=== PATIENT | male | born 1955 | race Caucasian/White ===

== ENCOUNTER 2016-05-01 15:42 | Emergency (ER) | payer BC ==
[2006-04-17 22:07] VITALS: BP 132/86
[~2016-05-01] VITALS: Ht 180.3 cm; Wt 90.9 kg
[~2016-05-01 15:42] MED LIST: ACTOS15 MG PO; ALLOPURINOL100 MG PO; AMOXICILLIN 8751 TAB PO; ASPI81EC86; ASPIRIN 32325 MG/TAB PO; ASPIRIN 81M81 MG/TA2 PO; BRILINTA90 MG PO; CHANTIX START M1 TAB PO; FLAGYL 250250 MG/TAB PO; GLUCOPHAGE500 MG/TAB PO; HCTZ 25MG TAB25 MG PO; LEVAQUIN 5500 MG/TA1 PO; LIPITOR20 MG PO; LOPRESSOR 225 MG/TAB PO; LOPRESSOR 550 MG/TAB PO; LORTAB 5/500 501 TAB PO; NORCO 325 MG-51 TAB PO; ONGLYZA2.5 MG PO; PLAVIX 75MG TAB75 MG PO; PRINIVIL20 MG PO; TESTOSTERONE; TOPROL; TOPROL XL 25MG25 MG PO; TOPROL XL 50MG50 MG PO; TYLENOL 325MG325 MG PO; UNABLE; ZESTRIL 10MG10 MG PO; ZESTRIL 20MG TA20 MG PO; ZOCOR; ZOCOR 10MG10 MG PO; ZOCOR 20MG20 MG PO; ZOCOR 40MG40 MG PO
[2016-05-01 15:43] VITALS: TEMP 97.8
[2016-05-01] MEDS ORDERED: TOPAMAX 25MG25 M1 PO (15:49)
[2016-05-01] MEDS ORDERED: LIPITOR 40MG TA40 MG PO (15:49)
[2016-05-01] MEDS ORDERED: FLEXERIL 1010 MG/TAB PO (16:54)
[2016-05-01] MEDS ORDERED: PREDNISONE20 MG PO (16:54)
[2016-05-01] MEDS ORDERED: PERCOCET 325 MG1 TA2 PO (16:54)
[2016-05-01 17:25] VITALS: BP 112/68; PULSE 57
== END 2016-05-01 17:27 | disposition home or self-care (01) ==
LOC: COL.ER 15:42
DX: M54.5 Low back pain (principal); M54.16 Radiculopathy, lumbar region
CPT/HCPCS: J1170; J1885; J2360; J3010; J7512

== ENCOUNTER 2017-03-14 17:42 | Emergency (ER) | payer BC ==
[2006-04-17 22:07] VITALS: BP 132/86
[~2017-03-14] VITALS: Ht 180.3 cm; Wt 90.9 kg
[~2017-03-14 17:42] MED LIST changes: +FLEXERIL 1010 MG/TAB PO; +LIPITOR 40MG TA40 MG PO; +PERCOCET 325 MG1 TA2 PO; +PREDNISONE20 MG PO; +TOPAMAX 25MG25 M1 PO
[2017-03-14 17:45] VITALS: TEMP 97.9
[2017-03-14 18:03] LABS: BASO # 0.1 (0.0-0.2); BASO % 0.9 % (0.0-2.0); EOS # 0.1 (0.0-0.7); EOS % 1.3 % (0-4.0); GRAN # 3.4 (1.4-6.5); GRAN % 52.7 % (42.2-75.2); HEMATOCRIT 49.1 % (42.0-52.0); LYMPH # 1.9 (1.2-3.4); LYMPH % 30.2 % (20.0-51.0); MEAN CELL VOLUME 96 fl (80.0-100.0); MEAN CORPUSCULAR HEMOGLOBIN 33 pg (27.0-31.0); MEAN CORPUSCULAR HGB CONC 35 g/dl (33.0-37.0); MEAN PLATELET VOLUME 9.6 fl (7.4-10.4); MONO # 0.9 (0.1-0.6); MONO % 14.7 % (1.7-9.3); PLATELET COUNT 130 K/mm3 (130-400); RED BLOOD COUNT 5.12 M/mm3 (4.20-5.60); WHITE BLOOD COUNT 6.4 K/mm3 (4.8-10.8)
[2017-03-14 18:12] LABS: PROTHROMBIN TIME 10.5 SECONDS (9.7-12.8)
[2017-03-14 18:15] LABS: PARTIAL THROMBOPLASTIN TIME 32.6 SECONDS (26.0-37.0)
[2017-03-14 18:27] LABS: ADJUSTED CALCIUM 8.3 mg/dL (8.4-10.2); ALANINE AMINOTRANSFERASE 46 U/L (21-72); ALBUMIN 4.7 gm/dL (3.5-5.0); ALCOHOL(ethanol),MEDICAL 279 mg/dL; ALKALINE PHOSPHATASE 114 U/L (50-136); ANION GAP 12 mmol/L (7-16); BILIRUBIN,TOTAL 0.5 mg/dL (0.0-1.0); BLOOD UREA NITROGEN 11 mg/dL (9-20); CALCIUM 8.9 mg/dL (8.4-10.2); CARBON DIOXIDE 27 mmol/L (22-30); CHLORIDE 102 mmol/L (98-107); CREATININE, serum 0.71 mg/dL (0.66-1.25); GLUCOSE 135 mg/dL (74-106); LIPASE 133 U/L (23-300); SODIUM 140 mmol/L (137-145); TOTAL PROTEIN 7.6 gm/dL (6.4-8.2)
[2017-03-14 18:48] LABS: TROPONIN-I < 0.012 ng/mL (0.000-0.034)
[2017-03-14 23:45] VITALS: BP 158/99; PULSE 84
== END 2017-03-15 00:10 | disposition short-term general hospital (02) ==
LOC: COL.ER 17:42
PROVIDERS: Emergency Medicine
DX: J18.9 Pneumonia, unspecified organism (principal); I10 Essential (primary) hypertension; I25.10 Atherosclerotic heart disease of native coronary artery without angina pectoris; E78.5 Hyperlipidemia, unspecified; F17.210 Nicotine dependence, cigarettes, uncomplicated; Z95.5 Presence of coronary angioplasty implant and graft
CPT/HCPCS: J1956; J2060; J2270; J7030; Q9967

== ENCOUNTER 2017-09-06 21:47 | Emergency (ER) | payer BC ==
[2006-04-17 22:07] VITALS: BP 132/86
[~2017-09-06] VITALS: Ht 180.3 cm; Wt 90.9 kg
[2017-09-06 21:57] VITALS: BP 140/84; TEMP 97.4
[2017-09-06] MEDS ORDERED: DESYREL 50MG50 MG PO (22:34)
[2017-09-06] MEDS ORDERED: LIDODERM 5% PATC1 EA TP (23:12)
[2017-09-06] MEDS ORDERED: FLEXERIL 1010 MG/TAB PO (23:25)
[2017-09-06 23:39] VITALS: PULSE 78
== END 2017-09-06 23:40 | disposition home or self-care (01) ==
LOC: COL.ER 21:47
DX: M54.31 Sciatica, right side (principal); I25.2 Old myocardial infarction; F17.210 Nicotine dependence, cigarettes, uncomplicated; Z79.82 Long term (current) use of aspirin

== ENCOUNTER 2018-05-30 08:13 | Emergency (ER) | payer BC ==
[~2018-05-30] VITALS: Ht 180.3 cm; Wt 63.6 kg
[~2018-05-30 08:13] MED LIST changes: +DESYREL 50MG50 MG PO; +LIDODERM 5% PATC1 EA TP
[2018-05-30 08:15] VITALS: TEMP 97
[2018-05-30] MEDS ORDERED: NORVASC 5MG5 MG/TAB PO (08:26)
[2018-05-30] MEDS ORDERED: PLAVIX 75MG TAB75 MG PO (08:27)
[2018-05-30] MEDS ORDERED: TOPAMAX 25MG25 M1 PO (08:28)
[2018-05-30 08:47] LABS: BASO # 0.1 (0.0-0.2); BASO % 0.8 % (0.0-2.0); EOS % 0.1 % (0-4.0); GRAN # 8.1 (1.4-6.5); GRAN % 84.6 % (42.2-75.2); HEMATOCRIT 50.6 % (42.0-52.0); HEMOGLOBIN 17.7 g/dl (13.5-18.0); LYMPH # 0.6 (1.2-3.4); LYMPH % 5.8 % (20.0-51.0); MEAN CELL VOLUME 94 fl (80.0-100.0); MEAN CORPUSCULAR HEMOGLOBIN 33 pg (27.0-31.0); MEAN CORPUSCULAR HGB CONC 35 g/dl (33.0-37.0); MEAN PLATELET VOLUME 9.4 fl (7.4-10.4); MONO # 0.8 (0.1-0.6); MONO % 8.3 % (1.7-9.3); PLATELET COUNT 100 K/mm3 (130-400); RED BLOOD COUNT 5.36 M/mm3 (4.20-5.60); REDCELL DISTRIBUTION WIDTH-CV 12.2 % (11.5-14.5)
[2018-05-30 08:53] LABS: INR 1.1 (0.8-3.0)
[2018-05-30 09:03] LABS: ALBUMIN 4.4 gm/dL (3.5-5.0); BILIRUBIN,TOTAL 1.4 mg/dL (0.0-1.0); CALCIUM 9.4 mg/dL (8.4-10.2); CREATININE, serum 0.64 mg/dL (0.66-1.25); POTASSIUM 4.5 mmol/L (3.4-5.0); TOTAL PROTEIN 7.7 gm/dL (6.4-8.2)
[2018-05-30 09:59] VITALS: BP 145/87; PULSE 75
== END 2018-05-30 10:00 | disposition short-term general hospital (02) ==
LOC: COL.ER 08:13
PROVIDERS: Emergency Medicine
DX: S06.5X9A Traumatic subdural hemorrhage with loss of consciousness of unspecified duration, initial encounter (principal); R47.01 Aphasia; I10 Essential (primary) hypertension; I25.10 Atherosclerotic heart disease of native coronary artery without angina pectoris; F17.210 Nicotine dependence, cigarettes, uncomplicated; G45.9 Transient cerebral ischemic attack, unspecified; F10.129 Alcohol abuse with intoxication, unspecified; Z91.14 Patient's other noncompliance with medication regimen; Z79.82 Long term (current) use of aspirin; Z79.02 Long term (current) use of antithrombotics/antiplatelets; W19.XXXA Unspecified fall, initial encounter
CPT/HCPCS: J7030

== ENCOUNTER 2019-06-04 18:32 | Emergency (ER) | payer SELFPAY ==
[2006-04-17 22:07] VITALS: BP 132/86
[~2019-06-04] VITALS: Ht 180.3 cm; Wt 77.3 kg
[~2019-06-04 18:32] MED LIST changes: +NORVASC 5MG5 MG/TAB PO
[2019-06-04 18:50] VITALS: BP 157/72; PULSE 93; TEMP 97.6
== END 2019-06-04 20:57 | disposition left against medical advice (07) ==
LOC: COL.ER 18:32
DX: R10.84 Generalized abdominal pain (principal)

== ENCOUNTER 2019-10-26 09:39 | Emergency (ER) | payer SELFPAY ==
[2006-04-17 22:07] VITALS: BP 132/86
[~2019-10-26] VITALS: Ht 180.3 cm; Wt 77.3 kg
[2019-10-26 09:44] VITALS: TEMP 98
[2019-10-26 10:32] LABS: BASO # 0.1 (0.0-0.2); EOS # 0.1 (0.0-0.7); EOS % 1.3 % (0-4.0); GRAN # 3.6 (1.4-6.5); GRAN % 75.8 % (42.2-75.2); HEMATOCRIT 38.2 % (42.0-52.0); HEMOGLOBIN 12.5 g/dl (13.5-18.0); LYMPH # 0.4 (1.2-3.4); LYMPH % 7.5 % (20.0-51.0); MEAN CELL VOLUME 102 fl (80.0-100.0); MEAN CORPUSCULAR HEMOGLOBIN 33 pg (27.0-31.0); MEAN CORPUSCULAR HGB CONC 33 g/dl (33.0-37.0); MEAN PLATELET VOLUME 10.3 fl (7.4-10.4); MONO # 0.7 (0.1-0.6); PLATELET COUNT 54 K/mm3 (130-400); RED BLOOD COUNT 3.74 M/mm3 (4.20-5.60); REDCELL DISTRIBUTION WIDTH-CV 13.8 % (11.5-14.5)
[2019-10-26 10:34] LABS: COLLECTION METHOD CLEAN CATCH
[2019-10-26 10:38] LABS: INR 1.2 (0.8-3.0); PROTHROMBIN TIME 13.8 SECONDS (9.7-12.8)
[2019-10-26 10:41] LABS: PARTIAL THROMBOPLASTIN TIME 42.6 SECONDS (26.0-37.0)
[2019-10-26 10:41] LABS: PH 6 (5-8); SQUAMOUS EPITHELIAL None Seen /hpf; URINE APPEARANCE Clear; URINE BACTERIA None Seen /hpf; URINE BILIRUBIN Negative (NEGATIVE); URINE BLOOD Negative (NEGATIVE); URINE COLOR Yellow; URINE GLUCOSE Negative (NEGATIVE); URINE KETONE Trace (NEGATIVE); URINE LEUKOCYTE ESTERASE Negative (NEGATIVE); URINE NITRATE Negative (NEGATIVE); URINE PROTEIN(semi-quant) Negative (NEGATIVE); URINE RBC 0-2 /hpf; URINE UROBILINOGEN Negative (NEGATIVE)
[2019-10-26 10:43] LABS: ALBUMIN 3.4 gm/dL (3.5-5.0); BILIRUBIN,TOTAL 2.5 mg/dL (0.0-1.0); C-REACTIVE PROTEIN 3.3 mg/dL (0.0-0.9); CALCIUM 8.1 mg/dL (8.4-10.2); CREATININE, serum 0.5 (0.66-1.25); POTASSIUM 3.6 mmol/L (3.4-5.0); TOTAL PROTEIN 7.2 gm/dL (6.4-8.2)
[2019-10-26] MEDS ORDERED: K-DUR20 MEQ PO (13:06)
[2019-10-26] MEDS ORDERED: LASIX 20MG TABL20 MG PO (13:06)
[2019-10-26] MEDS ORDERED: DOXYCYCLINE 10100 MG PO (13:06)
[2019-10-26] MEDS ORDERED: TOPROL XL 50MG50 MG PO (13:06)
[2019-10-26 13:23] VITALS: BP 166/96; PULSE 97
== END 2019-10-26 13:30 | disposition home or self-care (01) ==
LOC: COL.ER 09:39
PROVIDERS: Physician Assistant
DX: L03.115 Cellulitis of right lower limb (principal); L03.116 Cellulitis of left lower limb; R60.0 Localized edema; I10 Essential (primary) hypertension; I25.10 Atherosclerotic heart disease of native coronary artery without angina pectoris; F17.210 Nicotine dependence, cigarettes, uncomplicated; Z79.82 Long term (current) use of aspirin; Z79.02 Long term (current) use of antithrombotics/antiplatelets; Z95.5 Presence of coronary angioplasty implant and graft

== ENCOUNTER 2019-12-16 22:49 | Emergency (ER) | payer SELFPAY ==
[2006-04-17 22:07] VITALS: BP 132/86
[~2019-12-16] VITALS: Ht 180.3 cm; Wt 79.5 kg
[~2019-12-16 22:49] MED LIST changes: +DOXYCYCLINE 10100 MG PO; +K-DUR20 MEQ PO; +LASIX 20MG TABL20 MG PO
[2019-12-16 22:58] VITALS: TEMP 98.1
[2019-12-16 23:45] LABS: BASO # 0.1 (0.0-0.2); BASO % 1.4 % (0.0-2.0); EOS # 0.1 (0.0-0.7); EOS % 1.9 % (0-4.0); GRAN # 2.7 (1.4-6.5); HEMOGLOBIN 10.8 g/dl (13.5-18.0); LYMPH # 0.7 (1.2-3.4); LYMPH % 15.6 % (20.0-51.0); MEAN CELL VOLUME 103 fl (80.0-100.0); MEAN CORPUSCULAR HEMOGLOBIN 35 pg (27.0-31.0); MEAN CORPUSCULAR HGB CONC 34 g/dl (33.0-37.0); MONO # 0.7 (0.1-0.6); MONO % 15.9 % (1.7-9.3); PLATELET COUNT 57 K/mm3 (130-400); REDCELL DISTRIBUTION WIDTH-CV 15.6 % (11.5-14.5)
[2019-12-16 23:47] LABS: HEMATOCRIT 31.8 % (42.0-52.0)
[2019-12-16 23:56] LABS: ALANINE AMINOTRANSFERASE 23 U/L (4-49); ALBUMIN 3.4 gm/dL (3.5-5.0); ALCOHOL(ethanol),MEDICAL 189 mg/dL; ALKALINE PHOSPHATASE 224 U/L (50-136); ANION GAP 11 mmol/L (7-16); AST,SGOT 89 U/L (15-37); BILIRUBIN,TOTAL 1.6 mg/dL (0.0-1.0); CALCIUM 8.3 mg/dL (8.4-10.2); CARBON DIOXIDE 20 mmol/L (22-30); CHLORIDE 103 mmol/L (98-107); CREATININE, serum 0.42 (0.66-1.25); GLUCOSE 93 mg/dL (74-106); POTASSIUM 3.6 mmol/L (3.4-5.0); SODIUM 134 mmol/L (137-145); TOTAL PROTEIN 7.1 gm/dL (6.4-8.2)
[2019-12-16 23:57] LABS: BLOOD UREA NITROGEN < 2 mg/dL (9-20)
[2019-12-17] MEDS ORDERED: AMOXICILLIN 8751 TAB PO (00:03)
[2019-12-17 00:59] VITALS: BP 129/76; PULSE 85
== END 2019-12-17 00:59 | disposition home or self-care (01) ==
LOC: COL.ER 22:49
PROVIDERS: Emergency Medicine
DX: S00.93XA Contusion of unspecified part of head, initial encounter (principal); F10.229 Alcohol dependence with intoxication, unspecified; R40.2412 Glasgow coma scale score 13-15, at arrival to emergency department; Z79.82 Long term (current) use of aspirin; Z79.02 Long term (current) use of antithrombotics/antiplatelets; W01.0XXA Fall on same level from slipping, tripping and stumbling without subsequent striking against object, initial encounter; Y92.009 Unspecified place in unspecified non-institutional (private) residence as the place of occurrence of the external cause
CPT/HCPCS: J2270; J2405; J7030

== ENCOUNTER 2020-11-14 16:29 | Inpatient (IN) | payer OTHER ==
[~2020-11-14] VITALS: Ht 172.7 cm; Wt 69.8 kg
[2020-11-14 17:07] LABS: BASO # 0.1 (0.0-0.2); BASO % 2.2 % (0.0-2.0); EOS % 0.8 % (0-4.0); GRAN # 2.7 (1.4-6.5); GRAN % 74.5 % (42.2-75.2); HEMATOCRIT 37.9 % (42.0-52.0); HEMOGLOBIN 12.8 g/dl (13.5-18.0); LYMPH # 0.4 (1.2-3.4); LYMPH % 11.1 % (20.0-51.0); MEAN CELL VOLUME 95 fl (80.0-100.0); MEAN CORPUSCULAR HEMOGLOBIN 32 pg (27.0-31.0); MEAN CORPUSCULAR HGB CONC 34 g/dl (33.0-37.0); MEAN PLATELET VOLUME 10.5 fl (7.4-10.4); MONO # 0.4 (0.1-0.6); MONO % 11.1 % (1.7-9.3); RED BLOOD COUNT 3.99 M/mm3 (4.20-5.60); REDCELL DISTRIBUTION WIDTH-CV 14.5 % (11.5-14.5)
[2020-11-14 17:11] LABS: PLATELET COUNT 45 K/mm3 (130-400)
[2020-11-14 17:14] LABS: INR 1.5 (0.8-3.0); PROTHROMBIN TIME 17.1 SECONDS (9.7-12.8)
[2020-11-14 17:19] LABS: ALBUMIN 3.8 gm/dL (3.5-5.0); BILIRUBIN,TOTAL 3.9 mg/dL (0.0-1.0); CALCIUM 8.4 mg/dL (8.4-10.2); CREATININE, serum 0.51 (0.66-1.25); MAGNESIUM 1.8 mg/dL (1.6-2.3); POTASSIUM 4.1 mmol/L (3.4-5.0)
[2020-11-14 17:30] LABS: TROPONIN-I 0.085 ng/mL (0.000-0.035)
[2020-11-14 17:39] LABS: COLLECTION METHOD RANDOM VOIDED
[2020-11-14 17:57] LABS: MUCOUS Present /lpf; PH 6 (5-8); SQUAMOUS EPITHELIAL 0-2 /hpf; URINE APPEARANCE Clear; URINE BACTERIA None Seen /hpf; URINE BILIRUBIN Negative (NEGATIVE); URINE BLOOD Negative (NEGATIVE); URINE COLOR Yellow; URINE GLUCOSE Negative (NEGATIVE); URINE KETONE Negative (NEGATIVE); URINE LEUKOCYTE ESTERASE Negative (NEGATIVE); URINE NITRATE Negative (NEGATIVE); URINE PROTEIN(semi-quant) Negative (NEGATIVE); URINE RBC None Seen /hpf
[2020-11-14 18:41] LABS: TRICYCLIC ANTIDEPRESS URINE NEGATIVE
[2020-11-14 23:36] VITALS: BP 122/61; PULSE 75; TEMP 97.8
[2020-11-15] VITALS (9 sets, daily range): BP systolic 123–145; BP diastolic 54–73; PULSE 77–84; TEMP 98.1–99.5
--- NOTE | 2020-11-15 00:48 | NUR ---
Patient arrived to medical floor room 312 via hospital bed from ER around 2100. Patient A/O x3. Patient reports some lower back pain 5/10. Patient reports feeling anxious. PRN pain med given per JUN. Patient has received Ativan prior to come to medical floor and it is too soon to give Ativan at this time. Patient currently scoring 4 or 5 on alcohol detox scale. Oriented patient to the room. Bed alarms on. Fall precaution and seizure precaution maintained. Call light within reach. Will continue to monitor.
--- NOTE | 2020-11-15 06:12 | NUR ---
Patient sletp well throughout the night. Patient currently scoring 2-3 on CIWA scale this morning. Troponin was 2.71 last night. Patient denies any chest pain throughout the night. Hospitalist JOSR Palmer made aware. Per Estela OVALLES, we will monitor for now. Call light within reach.
[2020-11-15 07:49] LABS: CALCIUM 7.9 mg/dL (8.4-10.2); CREATININE, serum 0.42 (0.66-1.25); POTASSIUM 3.4 mmol/L (3.4-5.0)
[2020-11-15 07:56] LABS: BASO % 1.7 % (0.0-2.0); EOS # 0.1 (0.0-0.7); GRAN # 1.3 (1.4-6.5); GRAN % 56.1 % (42.2-75.2); LYMPH # 0.5 (1.2-3.4); LYMPH % 22.6 % (20.0-51.0); MEAN CELL VOLUME 97 fl (80.0-100.0); MEAN CORPUSCULAR HGB CONC 33 g/dl (33.0-37.0); MEAN PLATELET VOLUME 10.8 fl (7.4-10.4); MONO # 0.4 (0.1-0.6); MONO % 16.2 % (1.7-9.3); RED BLOOD COUNT 3.23 M/mm3 (4.20-5.60); REDCELL DISTRIBUTION WIDTH-CV 14.6 % (11.5-14.5)
[2020-11-15 07:58] LABS: HEMATOCRIT 31.4 % (42.0-52.0); HEMOGLOBIN 10.3 g/dl (13.5-18.0); MEAN CORPUSCULAR HEMOGLOBIN 32 pg (27.0-31.0)
[2020-11-15 08:00] LABS: PLATELET COUNT 38 K/mm3 (130-400)
[2020-11-15 08:29] LABS: TROPONIN-I 1.9 ng/mL (0.000-0.035)
--- NOTE | 2020-11-15 11:46 | NUR ---
Assessment completed, alert/oriented, vital signs stable, denies pain or discomfort, troponin elevated/ cardiology consulted, denies any chest discomfort, platelets low/ no hep gtt ordered, patient scoring 4-6 on CIWA, he denies other needs , will continue to monitor closely
--- NOTE | 2020-11-15 12:48 | NUR ---
Plan is to return home with spouse Pat. SW met with patient about DC plan. Patient reports that he wants help with his drinking and smoking problem. Patient reports that he had a few beers and then fell back and slide down the wall. Patient reports that his PCP is Dr. Salas. Patient reports that he obtians medications at [facility] without difficulty. Patient reports that he works with Dr. Vogt, Dr. Stallings for care. Patient sophia having any DME use and has a cane but does not use it. Patient reports that he is not sure what he needs to feel better. SW will follow up and offered SUB rehab options.
--- NOTE | 2020-11-15 22:40 | NUR ---
Patient assessed around 1929. Given PRN Ativan for detox at that time, and again around 2239 per protocol. Patient with tremors, diaphoretic, insomnia, no appetite, febrile at times. High fall risk precautions in place. Voices no questions, needs, or concern at this time. Resting in bed with call light within reach. Denies chest pain and discomfort. Telemetry showing normal sinus rhythm. Very unsteady with ambulating.
[2020-11-16] VITALS (9 sets, daily range): BP systolic 12–147; BP diastolic 57–81; PULSE 75–94; TEMP 97.6–98.8
--- NOTE | 2020-11-16 05:27 | NUR ---
Patient has received PRN Ativan per detox protocol throughout the night. Has been scoring 6-9 on detox scale. Has been having some increased confusion, but easily redirected. Has been gettig up and wanting to go outside. Order received for nicotine patch, and given. Patient has been incontinet a few times during the night. Cares provided. Patient resting in bed with call light within reach at this time. High fall risk precautions in place.
--- NOTE | 2020-11-16 07:19 | NUR ---
Assessment completed, patient having more detox/ widthdrawl symptoms, he is now disoriented and impulsive, anxious and has visible tremors, vital signs remain stable, heart RRR/distal pulses are palpable, lungs CTA/ no resp.difficulty, bed alarm is set and will continue to monitor closely
[2020-11-16 07:26] LABS: BASO # 0.1 (0.0-0.2); BASO % 1.8 % (0.0-2.0); EOS % 1.2 % (0-4.0); GRAN # 2.3 (1.4-6.5); GRAN % 68.4 % (42.2-75.2); HEMOGLOBIN 10.2 g/dl (13.5-18.0); LYMPH # 0.5 (1.2-3.4); LYMPH % 13.4 % (20.0-51.0); MEAN CELL VOLUME 94 fl (80.0-100.0); MEAN CORPUSCULAR HEMOGLOBIN 31 pg (27.0-31.0); MEAN CORPUSCULAR HGB CONC 33 g/dl (33.0-37.0); MEAN PLATELET VOLUME 11.2 fl (7.4-10.4); MONO # 0.5 (0.1-0.6); MONO % 14.9 % (1.7-9.3); RED BLOOD COUNT 3.25 M/mm3 (4.20-5.60)
[2020-11-16 07:29] LABS: HEMATOCRIT 30.5 % (42.0-52.0)
[2020-11-16 07:30] LABS: PLATELET COUNT 35 K/mm3 (130-400)
[2020-11-16 07:38] LABS: CALCIUM 8.3 mg/dL (8.4-10.2); CHOLESTEROL RISK RATIO 3.7; CREATININE, serum 0.4 (0.66-1.25); POTASSIUM 3.3 mmol/L (3.4-5.0); TOTAL PROTEIN 7.3 gm/dL (6.4-8.2)
--- NOTE | 2020-11-16 13:00 | NUR ---
Patient continues to be very restless, disoriented and impulsive, he has visible tremors and is a high fall risk, CIWA scores of 9-10 , giving Ativan per protocol, his vital signs are stable/ and is SR on tele, I have notified that the Ativan does not seem to be helping his symptoms much if any at all, she gave an order for an additional IV dose of Ativan and to transfer patient to ICU for Precedex gtt, I have notfied smoke control supervisor JERRI Jones and she spoke with to imfor her that we currently do not have any open ICU beds, we will continue to closely montior the patient on the Medical floor
--- NOTE | 2020-11-16 18:56 | NUR ---
Bedside report received from JERRI Maurer. Patient laying in bed appears very anxious. Visible tremors noted. at bedside. Bed-alarms on, Fall precaution and seizure precautions in place. Will continue to monitor.
--- NOTE | 2020-11-16 22:56 | NUR ---
Shift assessment completed. Patient appears very anxious and agitated. Patient drowsy and oriented to self only. Able to tell his name and date of . But disoriented to place, current date or month, or situation. Patient curretly scoring 9 on CIWA scale. PRN Ativan per JUN. All other scheduled meds given per JUN. Fall precaution and seizure precaution maintained. Call light within reach. Will continue to monitor.
[2020-11-17] VITALS (8 sets, daily range): BP systolic 98–134; BP diastolic 40–94; PULSE 67–94; TEMP 97.5–98.7
--- NOTE | 2020-11-17 06:18 | NUR ---
Patient received first dose of Valium 10mg last night at 2100. Patient slept well after Vallium intake. Patient awake this morning around 5am and getting very agitated and combative. Patient has been scoring 9-10 on CIWA scale and has been receiving PRN Ativan throughout the night. Call light within reach. Bed alarms on. Fall precaution and seizure precaution maintained throughout the night.
[2020-11-17 06:47] LABS: BASO % 0.6 % (0.0-2.0); EOS % 0.2 % (0-4.0); GRAN # 5.3 (1.4-6.5); GRAN % 79.6 % (42.2-75.2); HEMOGLOBIN 11.2 g/dl (13.5-18.0); LYMPH # 0.5 (1.2-3.4); LYMPH % 7.7 % (20.0-51.0); MEAN CELL VOLUME 94 fl (80.0-100.0); MEAN CORPUSCULAR HEMOGLOBIN 33 pg (27.0-31.0); MEAN CORPUSCULAR HGB CONC 35 g/dl (33.0-37.0); MEAN PLATELET VOLUME 11.9 fl (7.4-10.4); MONO # 0.8 (0.1-0.6); MONO % 11.6 % (1.7-9.3); RED BLOOD COUNT 3.43 M/mm3 (4.20-5.60); REDCELL DISTRIBUTION WIDTH-CV 14.3 % (11.5-14.5)
[2020-11-17 06:52] LABS: HEMATOCRIT 32.3 % (42.0-52.0)
[2020-11-17 06:54] LABS: PLATELET COUNT 38 K/mm3 (130-400)
--- NOTE | 2020-11-17 07:00 | NUR ---
Report with JERRI Viera. Pt resting in bed with eyes closed, resp even and unlabored. Call light in reach. Bed alarm on.
[2020-11-17 07:13] LABS: CALCIUM 8.4 mg/dL (8.4-10.2); CREATININE, serum 0.49 (0.66-1.25); MAGNESIUM 1.8 mg/dL (1.6-2.3); POTASSIUM 3.9 mmol/L (3.4-5.0)
--- NOTE | 2020-11-17 11:47 | NUR ---
Pt refusing to take sched medications by mouth and still drowsy, falls back to sleep quickly after conversation. BP slightly low. Provider notified of pt's refusal of medications and BP parameters discussed for medications.
--- NOTE | 2020-11-17 18:00 | NUR ---
Bed alarm sounding, pt trying to get out of bed to use bathroom. This nurse and assisting nurse help pt to stand with walker. Pt able to bear weight briefly, very shaky and not able to take steps, sits back down and agrees to try urinal. Pt has already been incontinent of urine in the brief, unable to void any more. Brief changed and amberly care provided. Sched medications administered. Call light in reach. Bed alarm on.
[2020-11-18] VITALS (8 sets, daily range): BP systolic 95–137; BP diastolic 42–56; PULSE 60–90; TEMP 97.6–99
--- NOTE | 2020-11-18 01:23 | NUR ---
Pt alert, slightly confused. Pt able to answer orientation questions, but mentioned daughter and friend being here today. Pt also noted to have incomprehensible speech during assessment. Pt's pulses in lower extremities were 1+ bilaterally. Pt had 1+ edema in bilateral lower extremities. Pt has generalized bruising on bilateral arms with a skin tear on right forearm covered with mepelex. Pt scored 4 on Alcohol withdraw monitoring and was given valium per orders. No prn medications given at this time. Pt had one bout of incontinence and was cleaned with personal wipes and a full linen change completed.
--- NOTE | 2020-11-18 06:20 | NUR ---
Pt alert with mild confusion. Able to answer orientation questions during shift assessment. Pt unable to answer all orientation questions during later neuro checks, pt easily re-oriented as they woke up. Pt's alcohol withdrawal scores ranged 2-4, no prn medications needed. Pt had one bout of incontinence, cleaned with personal wipes and full linen change provided. Pt free from injury this shift. Pt's VS remained stable during shift.
[2020-11-18 06:37] LABS: HEMOGLOBIN 10.7 g/dl (13.5-18.0); MEAN CELL VOLUME 97 fl (80.0-100.0); MEAN CORPUSCULAR HEMOGLOBIN 32 pg (27.0-31.0); MEAN CORPUSCULAR HGB CONC 33 g/dl (33.0-37.0); MEAN PLATELET VOLUME 11.5 fl (7.4-10.4); RED BLOOD COUNT 3.33 M/mm3 (4.20-5.60); REDCELL DISTRIBUTION WIDTH-CV 14.5 % (11.5-14.5)
[2020-11-18 06:53] LABS: CALCIUM 8.3 mg/dL (8.4-10.2); CREATININE, serum 0.46 (0.66-1.25); HEMATOCRIT 32.2 % (42.0-52.0); MAGNESIUM 1.9 mg/dL (1.6-2.3); PLATELET COUNT 47 K/mm3 (130-400); POTASSIUM 3.7 mmol/L (3.4-5.0)
--- NOTE | 2020-11-18 09:14 | NUR ---
PT RESTING IN BED, EATING BREAKFAST. PATIENT ALERT AND ORIENTED TO LOCATION AND DATE. MORNING MEDICATIONS GIVEN. CIWA ASSESSMENT SCORE OF 1. INSPIRATORY WHEEZING AND STRIOR UPON AUSCULTATION. R FOREARM HAS A WOUND AND DRESSING APPLIED. PT DENIES ANY PAIN. WILL CONTINUE TO MONITOR.
--- NOTE | 2020-11-18 10:57 | NUR ---
First visit from the invoice checker. Patient was asleep. Piano Tuner prayed for patient while standing outside their door.
--- NOTE | 2020-11-18 22:06 | NUR ---
Pt drowsy, able to arouse to name easily. Pt able to answer orientation questions correctly. Pt right side budget report clerk weaker than left. Pt has generalized bruising from fall prior to hospitalization. Pt has skin tear on right forearm that is covered with mepelex. No drainage or bleeding noted at this time. Pt's eyes jaundice bilaterally. Pt able to follow verbal cues. One bout of incontinence earlier in shift, pt cleaned with personal wipes and full linen change provided.
[2020-11-19] VITALS (10 sets, daily range): BP systolic 93–132; BP diastolic 21–56; PULSE 58–83; TEMP 97.8–98.5
--- NOTE | 2020-11-19 01:57 | NUR ---
Pt's respirations increased while obtaining Vital signs. Pt denies shortness of air, SpO2 and and all other vital signs stable at this time. No further intervention performed. Warm blanket provided per pt request.
--- NOTE | 2020-11-19 02:01 | NUR ---
During aid with depend change and reposition, JERRI Jenkins noticed stage 2 pressure ulcer development on coccyx. Mepelex barrier placed by Alice. Will continue to monitor.
--- NOTE | 2020-11-19 02:19 | NUR ---
Backcharting. For 0000 vital signs and CIWA score, pt showed slight confusion but was easily reoriented. Pt asked for help getting "jeans" on. Pt reoriented to situation and the need to stay in bed and call if help required. Pt compliant with re-orientation. Pt repositioned and yessi changed at that time.
--- NOTE | 2020-11-19 04:57 | NUR ---
Pt alert and oriented this shift, able to answer orientation questions during neuro checks. Slight difference of physical medicine specialist strength with right hand being consistently weaker than left. Pt CIWA scores ranged from 1-3 this shift. Confusion noted around 0000 with pt attempting to "put my jeans on" reoriented easily to stay in bed. Pt had bouts of incontinence, cleaned with personal wipes. Skin breakdown noted over coccyx, managed with mepelex dressing. Pt VS remained stable this shift. Fall and seizure precautions observed, pt free from injury during shift.
[2020-11-19 07:00] LABS: BASO % 0.8 % (0.0-2.0); EOS # 0.1 (0.0-0.7); EOS % 1.3 % (0-4.0); GRAN # 3.8 (1.4-6.5); GRAN % 71.2 % (42.2-75.2); HEMOGLOBIN 10.2 g/dl (13.5-18.0); LYMPH # 0.4 (1.2-3.4); LYMPH % 7.5 % (20.0-51.0); MEAN CELL VOLUME 97 fl (80.0-100.0); MEAN CORPUSCULAR HEMOGLOBIN 32 pg (27.0-31.0); MEAN CORPUSCULAR HGB CONC 33 g/dl (33.0-37.0); MEAN PLATELET VOLUME 11.5 fl (7.4-10.4); MONO % 18.8 % (1.7-9.3); PLATELET COUNT 50 K/mm3 (130-400); RED BLOOD COUNT 3.17 M/mm3 (4.20-5.60); REDCELL DISTRIBUTION WIDTH-CV 14.6 % (11.5-14.5)
[2020-11-19 07:09] LABS: HEMATOCRIT 30.8 % (42.0-52.0)
[2020-11-19 07:18] LABS: BILIRUBIN,TOTAL 6.8 mg/dL (0.0-1.0); CALCIUM 8.2 mg/dL (8.4-10.2); CREATININE, serum 0.49 (0.66-1.25); MAGNESIUM 1.8 mg/dL (1.6-2.3); POTASSIUM 3.5 mmol/L (3.4-5.0); TOTAL PROTEIN 7.1 gm/dL (6.4-8.2)
[2020-11-19 07:21] LABS: INR 1.8 (0.8-3.0); PROTHROMBIN TIME 19.5 SECONDS (9.7-12.8)
--- NOTE | 2020-11-19 14:59 | NUR ---
PT/OT are recommending post-acute rehab. ALLAN met with the patient and his , Yenni, to discuss therapy's recommendation. The patient was sleeping. Yenni reports that if the patient continues the way he is and does not improve with his strength, then she would be interested in rehab. She chose 1) [facility] 2) [facility]. She states that she works at [employer] ALLAN consulted IPR Director, Jennie. ALLAN contacted and faxed a referral to Jose at [facility]. Awaiting screens.
--- NOTE | 2020-11-19 22:20 | NUR ---
Pt alert and oriented upon assessment. Pt stated he felt better this evening than during the day. Pt's right hand was weaker than left in green chain off bearer strength. Pt has jaundice in eyes bilaterally. Pt has generalized bruising from fall prior to hospital. Pt has stage2 pressure ulcer on coccyx, covered with mepelex. Pt repositioned at this time. Pt reports pain in lower back rated 7/10. Will follow up with provider on pain management strategies. Pt has noticable thick, white film over tongue, when offered oral swabs pt refused. Pt's called and was given update on plan of care.
--- NOTE | 2020-11-19 23:22 | NUR ---
Pt O2 saturation at 97% on 1L of Oxygen. Oxygen removed, pt saturation at 95% will continue to monitor.
[2020-11-20] VITALS (7 sets, daily range): BP systolic 90–123; BP diastolic 31–52; PULSE 63–77; TEMP 97.5–98.8
--- NOTE | 2020-11-20 00:17 | NUR ---
RECHECKED SpO2, CURRENTLY AT 92% ON ROOM AIR. NO OXYGEN PROVIDED AT THIS TIME. ONE BOUT OF INCONTINENCE, DEPEND CHANGED AND PARTIAL LINEN CHANGE PROVIDED. SACRAL DRESSING APPLIED TO COCCYX.
--- NOTE | 2020-11-20 03:09 | NUR ---
Pt SpO2 around 91-92% during vital signs. Pt placed on 1L O2, while sleeping will continue to monitor.
--- NOTE | 2020-11-20 03:11 | NUR ---
Pt blood pressure reading low on dynamap. Re-checked manually, 98/42. Pt currently sleeping. Will continue to monitor with 0400 vital signs.
--- NOTE | 2020-11-20 03:45 | NUR ---
Completed droplet/contact precautions order due to negative respiratory virus panel.
--- NOTE | 2020-11-20 05:02 | NUR ---
Pt alert and oriented this shift. Pt has dry cough, non-productive. Pt lungs clear upon auscultation. Pt's RVP negative, no isolation precautions needed. Pt complained of pain in lower back, JOSR Davis notified and lidocaine patch ordered for pain management. Pt denied pain for rest of shift. Pt had bouts of incontinence, cleaned with personal cleansing wipes. Pt has mepelex over sacral area to prevent further skin breakdown. Pt able to converse freely and express needs. Pt's spouse called for update at start of shift. Fall precautiosn observed.
--- NOTE | 2020-11-20 05:27 | NUR ---
Pt blood pressure value low 90/38, rechecked manually and confirmed 90/38. JOSR Davis notified of low trends.
[2020-11-20 07:14] LABS: ALBUMIN 2.5 gm/dL (3.5-5.0); BILIRUBIN,TOTAL 5.7 mg/dL (0.0-1.0); CALCIUM 7.6 mg/dL (8.4-10.2); CREATININE, serum 0.52 (0.66-1.25); POTASSIUM 3.1 mmol/L (3.4-5.0); TOTAL PROTEIN 6.2 gm/dL (6.4-8.2)
[2020-11-20 07:17] LABS: BASO % 1.3 % (0.0-2.0); EOS # 0.1 (0.0-0.7); EOS % 2.2 % (0-4.0); GRAN # 1.8 (1.4-6.5); GRAN % 57.7 % (42.2-75.2); LYMPH # 0.5 (1.2-3.4); LYMPH % 14.2 % (20.0-51.0); MEAN CELL VOLUME 99 fl (80.0-100.0); MEAN CORPUSCULAR HGB CONC 34 g/dl (33.0-37.0); MEAN PLATELET VOLUME 11.7 fl (7.4-10.4); MONO # 0.8 (0.1-0.6); MONO % 24.3 % (1.7-9.3); RED BLOOD COUNT 2.79 M/mm3 (4.20-5.60); REDCELL DISTRIBUTION WIDTH-CV 14.6 % (11.5-14.5)
[2020-11-20 07:27] LABS: HEMATOCRIT 27.5 % (42.0-52.0); HEMOGLOBIN 9.2 g/dl (13.5-18.0); MEAN CORPUSCULAR HEMOGLOBIN 33 pg (27.0-31.0); PLATELET COUNT 46 K/mm3 (130-400)
--- NOTE | 2020-11-20 10:43 | NUR ---
Assessment completed, alert/oriented, vitals stable, BP soft over night and IVF bolus given, overall patient is doing much better, CIWA scores 2-3 and not requiring Ativan, he is starting to increase his PO nutritional intake, ST ordered for swallow eval, heart RRR/ distal pulses are palpable, SR on tele, replacing potassium per protocol, lungs diminished, CXR showed groundglass opacities/ COVID swab negative and treating for PNA with antibiotics, he is still been incontinent and doing frequent checks/ incont care as needed, bed alarm set and call light in reach, will continue to monitor
--- NOTE | 2020-11-20 14:48 | NUR ---
ALLAN faxed updates to Jose at [facility]. ALLAN followed up with Jennie, I[facility] Director. Jennie is checking with her team and administration.
--- NOTE | 2020-11-20 15:54 | NUR ---
Jose, at [facility], reports that they have declined the patient.
--- NOTE | 2020-11-20 15:58 | NUR ---
Jennie, IPR Director, reports that she is submitting the patient's information to insurance for prior-auth.
--- NOTE | 2020-11-20 20:00 | NUR ---
Assessment complete. , Yenni, currently at bedside and expresses concern that patient seems more confused tonight; Patient eventually answers all orientation questions correctly but does appear foggy in the mind. Vital signs are stable for patient and BG is WNL; Will notify hospitalist and get UA order. Patient is currently on RA and satting 98%. Lung sounds diminished and HR normal/regular. No edema noted. Patient states his feet are hurting. Call light in reach and bed alarm set.
[2020-11-21] VITALS (12 sets, daily range): BP systolic 109–138; BP diastolic 34–85; PULSE 75–99; TEMP 97.5–99.1
[2020-11-21 06:32] LABS: HEMOGLOBIN 10.2 g/dl (13.5-18.0); MEAN CELL VOLUME 99 fl (80.0-100.0); MEAN CORPUSCULAR HEMOGLOBIN 32 pg (27.0-31.0); MEAN CORPUSCULAR HGB CONC 33 g/dl (33.0-37.0); MEAN PLATELET VOLUME 11.5 fl (7.4-10.4); PLATELET COUNT 62 K/mm3 (130-400); PROTHROMBIN TIME 22.7 SECONDS (9.7-12.8); RED BLOOD COUNT 3.17 M/mm3 (4.20-5.60); REDCELL DISTRIBUTION WIDTH-CV 14.9 % (11.5-14.5)
[2020-11-21 06:38] LABS: ALBUMIN 2.9 gm/dL (3.5-5.0); BILIRUBIN,TOTAL 6.3 mg/dL (0.0-1.0); CREATININE, serum 0.5 (0.66-1.25); MAGNESIUM 1.9 mg/dL (1.6-2.3); POTASSIUM 3.4 mmol/L (3.4-5.0); TOTAL PROTEIN 7.1 gm/dL (6.4-8.2)
[2020-11-21 06:40] LABS: HEMATOCRIT 31.4 % (42.0-52.0)
[2020-11-21 07:34] LABS: BAND 8 % (0-10); EOSINOPHIL 4 % (0-4); LYMPHOCYTE 9 % (20.0-51.0); NEUTROPHILS 65 % (42.0-75.2); PLATELET ESTIMATE DECREASED (NORMAL)
--- NOTE | 2020-11-21 11:11 | NUR ---
lowest saturation on excersise is 91% on room air. Pt did not require oxygen with this test.
--- NOTE | 2020-11-21 13:41 | NUR ---
Jennie, IPR Director, reports that the patient's insurance is not in-network with them. She states that the insurance can work on a one time contract, but it could take up to 14 days. Jennie reports that they did tell her [facility] in[facility]network. ALLAN met with the patient and his , Yenni, to update. Yenni is agreeable to send referrals to [facility] and [facility]. ALLAN contacted and faxed a referral to Gris at [facility]. Gris reports that if they do get auth and are able to take, that the earliest they would be able to take him would be on Tuesday or Tuesday. ALLAN left a voicemail with Ella at [facility], giving her the referral.
--- NOTE | 2020-11-21 16:42 | NUR ---
Maria L, at [facility], reports that she received the referral and will give the referral to her team and look into the patient's insurance. contacted Nickolas, Hair Salon Manager, with the patient's insurance. Nickolas reports that the patient's hospital stay has been authorized until 11/25. She reports she received requests for auth from [facility] and [facility]. She states that they feel like the patient is more appropriate for [facility], but that they will need to get the contract. She states that she will get in contact with this SW on Tuesday.
--- NOTE | 2020-11-21 18:00 | NUR ---
Patient has had an eventful day. Patient has been scoring 4-5's on CIWA. Ativan given as ordered. Has been experiencing hallucinations of dogs. has been at the bedside most of the day. Has been assisting with meals. Patient will need feeder when is not present. Patient struggling with nicotine withdrawls, nicotine patch placed as ordered, straws given to simulate smoking. Scheduled medications given, shift assessment preformed. New IV started in left forearm. Patient C/O back pain, Provider notified, Tramadol ordered. Fall precautions in place. VSS.
--- NOTE | 2020-11-21 22:01 | NUR ---
Shift assessment completed. Patient appears drowsy and lethargic. Patient arousable with voice and touch. Patient able to tell his name and date of but confused with place and situation. Patient's at bedside and reports that patient c/o back pain. PRN pain med given per JUN. Patient scoring 4-5 on CIWA scale. PRN Ativan given per JUN. Call light within reach. Fall precaution maintained.
[2020-11-22] VITALS (13 sets, daily range): BP systolic 108–140; BP diastolic 42–69; PULSE 67–94; TEMP 97.6–99
[2020-11-22 08:32] LABS: BASO # 0.1 (0.0-0.2); BASO % 1.7 % (0.0-2.0); EOS # 0.1 (0.0-0.7); EOS % 3.3 % (0-4.0); GRAN # 2.5 (1.4-6.5); GRAN % 59.2 % (42.2-75.2); HEMOGLOBIN 10.7 g/dl (13.5-18.0); LYMPH # 0.7 (1.2-3.4); MEAN CELL VOLUME 100 fl (80.0-100.0); MEAN CORPUSCULAR HEMOGLOBIN 32 pg (27.0-31.0); MEAN CORPUSCULAR HGB CONC 32 g/dl (33.0-37.0); MEAN PLATELET VOLUME 11.3 fl (7.4-10.4); MONO # 0.8 (0.1-0.6); MONO % 19.3 % (1.7-9.3); PLATELET COUNT 66 K/mm3 (130-400); RED BLOOD COUNT 3.36 M/mm3 (4.20-5.60); REDCELL DISTRIBUTION WIDTH-CV 15.1 % (11.5-14.5)
[2020-11-22 08:34] LABS: HEMATOCRIT 33.7 % (42.0-52.0)
[2020-11-22 08:45] LABS: ALBUMIN 3.2 gm/dL (3.5-5.0); BILIRUBIN,TOTAL 6.5 mg/dL (0.0-1.0); CALCIUM 8.5 mg/dL (8.4-10.2); CREATININE, serum 0.45 (0.66-1.25); POTASSIUM 3.6 mmol/L (3.4-5.0); TOTAL PROTEIN 7.7 gm/dL (6.4-8.2)
--- NOTE | 2020-11-22 08:45 | NUR ---
Shift assessment complete. Pt lying in bed. Has been disoriented at times this morning stating "I'm in [place]." At this time answers all orientation questions appropriately. Appears drowsy and drifts off frequently while this RN in room. Incontinent of urine in bed, bed change and bed bath done. Denies other needs at this time. Call light in reach and bed alarm on.
[2020-11-23] VITALS (9 sets, daily range): BP systolic 87–140; BP diastolic 36–70; PULSE 62–84; TEMP 97.6–98.6
--- NOTE | 2020-11-23 06:35 | NUR ---
PATIENT RESTING IN BED, CONFUSES AND DISORIENTED AT TIME. VSS, RESTLESS AT TIME TRYING TO CLIMB OUT OF BED. BED ALARM IN PLACE, ON CIWA SCALE. LORAZEPEM 1 MG IV GIVEN X1 FOR RESTLESSNESS. PATIENT INCONTINENT OCCASIONALLY. WILL CONTINUE TO MONITOR.
--- NOTE | 2020-11-23 07:59 | NUR ---
Shift assessment complete. Pt resting in bed, rouses to voice and answers orientation questions appropriately but remains drowsy and drifts off frequently while this RN in room. Notified by CONTINUOUS CRUSHER OPERATOR at 0745 that pt's BP was 80s/30s w/multiple checks. Manual BP done and found to be 92/36. Miladys OVALLES notified and fluid bolus ordered. Started fluid bolus at this time per orders. Pt denies dizziness, lightheadedness, or SOA. Denies other needs currently. Call light in reach, bed alarm on. Continuing to monitor.
[2020-11-23 08:52] LABS: ALBUMIN 2.7 gm/dL (3.5-5.0); BILIRUBIN,TOTAL 5.2 mg/dL (0.0-1.0); CALCIUM 8.1 mg/dL (8.4-10.2); CREATININE, serum 0.39 (0.66-1.25); TOTAL PROTEIN 6.6 gm/dL (6.4-8.2)
[2020-11-23 08:59] LABS: HEMOGLOBIN 10.4 g/dl (13.5-18.0); MEAN CELL VOLUME 98 fl (80.0-100.0); MEAN CORPUSCULAR HEMOGLOBIN 33 pg (27.0-31.0); MEAN CORPUSCULAR HGB CONC 34 g/dl (33.0-37.0); MEAN PLATELET VOLUME 11.4 fl (7.4-10.4); PLATELET COUNT 58 K/mm3 (130-400); RED BLOOD COUNT 3.14 M/mm3 (4.20-5.60)
[2020-11-23 09:13] LABS: HEMATOCRIT 30.8 % (42.0-52.0)
[2020-11-23 10:27] LABS: ANISOCYTOSIS 1+; BAND 1 % (0-10); EOSINOPHIL 4 % (0-4); LYMPHOCYTE 19 % (20.0-51.0); NEUTROPHILS 65 % (42.0-75.2); PLATELET ESTIMATE DECREASED (NORMAL)
--- NOTE | 2020-11-23 21:16 | NUR ---
Shift assessment completed. Patient resting in bed comfortably with eyes closed. Patient arousable with voice and touch. Patient appears drowsy and partially oriented. Patient ate about 50% of dinner. Patient denies pain or discomfort. Breathing even and unlabored. VS stable. Call light within reach. Bed alarms on. Fall precaution maintained. Will continue to monitor.
[2020-11-24 00:41] VITALS: BP 114/45; PULSE 72; TEMP 98.9
[2020-11-24 04:18] VITALS: BP 130/47; PULSE 81; TEMP 99.4
--- NOTE | 2020-11-24 05:31 | NUR ---
Patient slept well throughout the night. Awakes easily with voice and touch. Incontinent brief changed at 0500 and amberly-care provided. Call light within reach. Will continue to monitor.
[2020-11-24 05:47] LABS: BASO # 0.1 (0.0-0.2); BASO % 1.7 % (0.0-2.0); EOS # 0.1 (0.0-0.7); EOS % 2.2 % (0-4.0); GRAN # 2.7 (1.4-6.5); GRAN % 65.8 % (42.2-75.2); LYMPH # 0.6 (1.2-3.4); LYMPH % 15.4 % (20.0-51.0); MEAN CELL VOLUME 99 fl (80.0-100.0); MEAN CORPUSCULAR HGB CONC 33 g/dl (33.0-37.0); MEAN PLATELET VOLUME 11.4 fl (7.4-10.4); MONO # 0.6 (0.1-0.6); MONO % 14.4 % (1.7-9.3); PLATELET COUNT 71 K/mm3 (130-400); RED BLOOD COUNT 2.97 M/mm3 (4.20-5.60)
[2020-11-24 05:52] LABS: HEMATOCRIT 29.3 % (42.0-52.0); HEMOGLOBIN 9.8 g/dl (13.5-18.0); MEAN CORPUSCULAR HEMOGLOBIN 33 pg (27.0-31.0)
[2020-11-24 05:57] LABS: ALBUMIN 2.5 gm/dL (3.5-5.0); BILIRUBIN,TOTAL 4.8 mg/dL (0.0-1.0); CALCIUM 8.2 mg/dL (8.4-10.2); CREATININE, serum 0.5 (0.66-1.25); TOTAL PROTEIN 6.5 gm/dL (6.4-8.2)
[2020-11-24 07:26] VITALS: BP 109/43; PULSE 78; TEMP 98.9
[2020-11-24 08:37] LABS: INR 2.3 (0.8-3.0); PROTHROMBIN TIME 25.3 SECONDS (9.7-12.8)
--- NOTE | 2020-11-24 10:17 | NUR ---
Scheduled medications given, shift assessment preformed. Patient is A&O. VSS. Patient states that he has a mild aching pain rated a 2/10 located on his right lower back. Lidocaine patch placed as ordered. Patient denies the need for further interventions. Patient denies any further pain, discomfort, or futher needs at this time. Call light in reach. Speech therapy and Physical therapy working with patient.
[2020-11-24 11:52] VITALS: BP 96/41; PULSE 78; TEMP 97.9
--- NOTE | 2020-11-24 14:34 | NUR ---
Jennie, [facility] Director, reports that the patient's insurance declined a contract with them, due to being [id number]. ALLAN attempted to contact Gris at [facility] to follow up on referral. ALLAN left her a voicemail and faxed over updates.
[2020-11-24 16:07] VITALS: BP 110/41; PULSE 80; TEMP 99
--- NOTE | 2020-11-24 18:00 | NUR ---
Patient had an ok day. A&O during the day. At 1700 patient started to become confused and disorientated. Patient reorientated. VSS. Patient denies any pain, discomfort, or futher needs at this time. Fall/seizure precautions in place. Call light in reach. at the bedside.
[2020-11-24 19:40] VITALS: BP 110/40; PULSE 80; TEMP 99.1
--- NOTE | 2020-11-24 21:56 | NUR ---
Shift assessment completed. Patient laying in bed queitly. Patient confused and having hallucinations at this time. Patient reports seeing some other people standing at the corner of the room. Patient's in the room at bed side. Patient reports having some pain to his back. PRN pain meds given per MAR. Assisted patient to go to the bathroom to void. Patient had large BM. Patient ambulates with a walker, weak and unsteady gait. 1 person assit needed for transfer and ambulation. Assisted patient with amberly-care. Call light within reach. Bed alarms on. Fall precaution and seizure precaution maintained.
[2020-11-25] VITALS (7 sets, daily range): BP systolic 96–129; BP diastolic 37–51; PULSE 63–87; TEMP 97.8–100.5
[2020-11-25 05:55] LABS: BASO # 0.1 (0.0-0.2); BASO % 1.6 % (0.0-2.0); EOS # 0.1 (0.0-0.7); EOS % 1.3 % (0-4.0); GRAN # 4.2 (1.4-6.5); GRAN % 76.4 % (42.2-75.2); HEMOGLOBIN 10.2 g/dl (13.5-18.0); LYMPH # 0.5 (1.2-3.4); LYMPH % 9.7 % (20.0-51.0); MEAN CELL VOLUME 98 fl (80.0-100.0); MEAN CORPUSCULAR HEMOGLOBIN 32 pg (27.0-31.0); MEAN CORPUSCULAR HGB CONC 33 g/dl (33.0-37.0); MEAN PLATELET VOLUME 11.2 fl (7.4-10.4); MONO # 0.6 (0.1-0.6); MONO % 10.6 % (1.7-9.3); PLATELET COUNT 79 K/mm3 (130-400); RED BLOOD COUNT 3.17 M/mm3 (4.20-5.60)
--- NOTE | 2020-11-25 05:57 | NUR ---
Patient had soft BM x2, loose BM x1 over the night. Temp of 100.5 around 0500 am this morning. JOSR Palmer notified. PRN Mortrin given around 05:30 am for fever. GI panel and UA will need to collect per order.
[2020-11-25 06:07] LABS: ALBUMIN 2.7 gm/dL (3.5-5.0); CALCIUM 8.5 mg/dL (8.4-10.2); CREATININE, serum 0.5 (0.66-1.25); POTASSIUM 4.5 mmol/L (3.4-5.0); TOTAL PROTEIN 6.8 gm/dL (6.4-8.2)
--- NOTE | 2020-11-25 11:16 | NUR ---
Scheduled medications given. Shift assessment preformed. Patient is alert but only partially orientated. Patient has been experiencing urinary incontinence. Pericare preformed, stage 2 pressure ulcer on sacrum dressed. Patient repositioned. Lactulose held for diarrhea. Patient denies any pain, discomfort, N/V, or futher needs at this time. BP's soft. Call light in reach. Fall precautions in place.
[2020-11-25 13:18] LABS: INR 2.2 (0.8-3.0); PROTHROMBIN TIME 24.6 SECONDS (9.7-12.8)
--- NOTE | 2020-11-25 15:19 | NUR ---
Gris, at [facility], reports that she is still waiting to hear from insurance. She reports that she would also like to try and come and see the patient tomorrow. ALLAN contacted Nickolas at [facility] to update on [facility]. ALLAN then attended clinical rounds. The patient's , Pat, at [facility]. GI is to be consulted. ALLAN updated Yenni about [facility]. SW to continue to follow.
--- NOTE | 2020-11-25 16:40 | NUR ---
GI consult called.
[2020-11-26 04:26] VITALS: BP 99/41; PULSE 73; TEMP 97.7
[2020-11-26 07:03] LABS: BASO # 0.1 (0.0-0.2); BASO % 1.1 % (0.0-2.0); EOS # 0.1 (0.0-0.7); EOS % 1.5 % (0-4.0); GRAN % 71.8 % (42.2-75.2); LYMPH # 0.7 (1.2-3.4); LYMPH % 13.2 % (20.0-51.0); MEAN CELL VOLUME 99 fl (80.0-100.0); MEAN CORPUSCULAR HGB CONC 32 g/dl (33.0-37.0); MEAN PLATELET VOLUME 11.6 fl (7.4-10.4); MONO # 0.7 (0.1-0.6); PLATELET COUNT 79 K/mm3 (130-400); RED BLOOD COUNT 3.01 M/mm3 (4.20-5.60); REDCELL DISTRIBUTION WIDTH-CV 15.1 % (11.5-14.5)
[2020-11-26 07:05] LABS: HEMATOCRIT 29.8 % (42.0-52.0); HEMOGLOBIN 9.6 g/dl (13.5-18.0); MEAN CORPUSCULAR HEMOGLOBIN 32 pg (27.0-31.0)
[2020-11-26 07:19] LABS: ALBUMIN 2.5 gm/dL (3.5-5.0); BILIRUBIN,TOTAL 4.7 mg/dL (0.0-1.0); CALCIUM 8.2 mg/dL (8.4-10.2); CREATININE, serum 0.5 (0.66-1.25); TOTAL PROTEIN 6.8 gm/dL (6.4-8.2)
[2020-11-26 07:31] LABS: PROTHROMBIN TIME 22.7 SECONDS (9.7-12.8)
[2020-11-26 07:43] VITALS: BP 94/43; PULSE 73; TEMP 98.6
[2020-11-26 07:43] LABS: IRON,SERUM 29 ug/dL (35-150)
[2020-11-26 07:53] LABS: TOTAL IRON BINDING CAPACITY 185 ug/dL (261-462)
[2020-11-26 10:43] LABS: COLLECTION METHOD RANDOM VOIDED
[2020-11-26 11:20] LABS: MUCOUS Present /lpf; PH 7 (5-8); SQUAMOUS EPITHELIAL None Seen /hpf; URINE APPEARANCE Clear; URINE BACTERIA None Seen /hpf; URINE BILIRUBIN Positive (NEGATIVE); URINE BLOOD Negative (NEGATIVE); URINE COLOR Amber; URINE GLUCOSE Negative (NEGATIVE); URINE KETONE Negative (NEGATIVE); URINE LEUKOCYTE ESTERASE Negative (NEGATIVE); URINE NITRATE Negative (NEGATIVE); URINE PROTEIN(semi-quant) Negative (NEGATIVE); URINE RBC 0-2 /hpf; URINE UROBILINOGEN >=4.0 mg/dL (NEGATIVE)
[2020-11-26 12:15] VITALS: BP 111/54; PULSE 67; TEMP 98.6
--- NOTE | 2020-11-26 14:57 | NUR ---
Nickolas, piano case maker, with the patient's insurance contacted ALLAN. Nickolas reports that they have approved [facility] and have left a message with [facility]. ALLAN contacted Gris to follow up. Gris confirms they received auth. She states that they are full today, but that she will be here first thing tomorrow morning to visit the patient and will then follow up with ALLAN. ALLAN updated the patient's , Yenni. Pat states that she will be here tomorrow morning so that she can meet with Gris.
[2020-11-26 15:20] VITALS: BP 113/50; PULSE 72; TEMP 98.5
--- NOTE | 2020-11-26 15:22 | NUR ---
Nickolas, manager primary with the patient's insurance, contacted ALLAN back. Nickolas reports that she was just informed that [facility] is now in-network with the patient's insurance and that it can be another option for the patient. ALLAN notified IPR Director, Jennie.
--- NOTE | 2020-11-26 16:51 | NUR ---
0700 PT RECEIVED RESTING IN BED. PT DENIES HAVING PAIN. PT FORGETFUL AND REPETITIVE, ATTEMPTS MADE TO REORIENT PT. NO S/S OF DISTRESS NOTICED. COMFORT MEASURES IN PLACE. CALL-LIGHT IN REACH. BED ALARM ON. BED IN LOW POSITION. WILL CONTINUE TO MONITOR. 0830 PT EATING HIS MEAL. 0900 MEDICATIONS ADMINISTERED ORDERED. A.M. CARE PROVIDED. DRESSING TO SACRUM CHANGES. HEELS OFF-LOADED. PT HAS NO COMPLAINTS. WILL CONTINUE TO MONITOR. URINE SAMPLE SENT. STILL PENDING STOOL SAMPLE. NO BM'S SO FAR TODAY. PT REPOSITIONED FREQUENTLY. 0950 PROVIDER ROUNDED ON PT. 1145 PT EATING HIS LUNCH. SPOUSE AT THE BEDSIDE AND UPDATED ON PT'S CARE. PT 1400 SNACK OFFERED TO PT AND HE REFUSED. 1640 PT SPOUSE STILL AT THE BEDSIDE AND ENCOURAGING PT TO EAT. PT ORDERED HIS SUPPER.
[2020-11-26 19:21] VITALS: BP 99/40; PULSE 70; TEMP 98.4
--- NOTE | 2020-11-26 22:32 | NUR ---
PT RESTING COMFORTABLY IN BED. EVENING MEDICATIONS GIVEN. IV IS PATENT. PT HAS NO COMPLAINTS AT THIS TIME. CALL LIGHT WITHIN REACH. WILL CONTINUE TO MONITOR.
[2020-11-26 23:38] VITALS: BP 103/44; PULSE 66; TEMP 98.3
[2020-11-27 03:56] VITALS: BP 110/39; PULSE 71; TEMP 97.9
--- NOTE | 2020-11-27 05:33 | NUR ---
PT REPOSITIONED IN BED. DENIES ANY NEED. PT HAS BEEN SLEEPING FOR MOST OF THE SHIFT. WILL CONTINUE TO MONITOR.
[2020-11-27 07:04] LABS: BASO % 0.3 % (0.0-2.0); EOS % 0.3 % (0-4.0); GRAN # 5.9 (1.4-6.5); GRAN % 80.5 % (42.2-75.2); LYMPH # 0.6 (1.2-3.4); LYMPH % 7.5 % (20.0-51.0); MEAN CELL VOLUME 97 fl (80.0-100.0); MEAN CORPUSCULAR HGB CONC 33 g/dl (33.0-37.0); MEAN PLATELET VOLUME 11.7 fl (7.4-10.4); MONO # 0.8 (0.1-0.6); PLATELET COUNT 89 K/mm3 (130-400); RED BLOOD COUNT 3.08 M/mm3 (4.20-5.60); REDCELL DISTRIBUTION WIDTH-CV 14.7 % (11.5-14.5)
[2020-11-27 07:08] LABS: HEMOGLOBIN 9.9 g/dl (13.5-18.0); MEAN CORPUSCULAR HEMOGLOBIN 32 pg (27.0-31.0)
[2020-11-27 07:10] LABS: ALBUMIN 2.6 gm/dL (3.5-5.0); CALCIUM 8.5 mg/dL (8.4-10.2); CREATININE, serum 0.44 (0.66-1.25); TOTAL PROTEIN 6.9 gm/dL (6.4-8.2)
[2020-11-27 07:18] LABS: INR 1.9 (0.8-3.0); PROTHROMBIN TIME 20.8 SECONDS (9.7-12.8)
[2020-11-27 08:40] VITALS: BP 104/47; PULSE 59; TEMP 97.5
--- NOTE | 2020-11-27 10:12 | NUR ---
Gris, at [facility], met with the patient and his this morning. Gris reports that she feels like the patient would be a great candidate for them, but they still needs their doctors approval. She requests updates after the hospitalist rounds today. ALLAN faxed updates to Gris. ALLAN updated Nickolas, shelter case manager, with the patient's insurance.
[2020-11-27 10:26] LABS: ANA SCREEN with REFLEX Negative (Negative)
[2020-11-27 11:50] VITALS: BP 104/47; PULSE 66; TEMP 97.6
--- NOTE | 2020-11-27 13:20 | NUR ---
Jennie, IPR Director, reports that she may be able to take the patient now. ALLAN contacted and updated the patient's , Yenni. Pat reports that she would prefer [facility] over [facility]. ALLAN updated Jennie.
--- NOTE | 2020-11-27 13:20 | NUR ---
Initial visit; Patient thanked Wire Turning Machine Operator for stoppin by though he says he isn't a very spiritual person. Wire Turning Machine Operator wished "Bryson" well and was glad to meet him.
[2020-11-27 15:23] LABS: ANTISMOOTH MUSCLE ANTIBODY Negative (Negative)
[2020-11-27 16:59] VITALS: BP 115/48; PULSE 73; TEMP 98.1
--- NOTE | 2020-11-27 18:15 | NUR ---
0700 PT RECEIVED RESTING IN BED. NO S/S OF DISTRESS. PT DENIES HAVING PAIN. PT ALERT AND AWAKE. COMFORT MEASURES IN PLACE. CALL-LIGHT IN REACH. BED IN LOW POSITION. BED ALARM ON. WILL CONTINUE TO MONITOR. 0825 PT EATING HIS MEAL. NO COMPLAINTS AT THIS TIME. SPEECH THERAPIST AT THE BEDSIDE. 0900 MEDICATIONS ADMINISTERED ORDERED. V/S STABLE. 0930 PHYSICAL THERAPIST AT THE BEDSIDE. PT AMBULATED IN THE HALLWAY WITH WALKER. PT RETURNED TO THE CHAIR. SPOUSE AT THE BEDSIDE AND UPDATED ON THE PT'S CARE AND PROGRESS. 1015 PROVIDER AT THE BEDSIDE. 1100 PT OFFERED A SNACK AND ATE. PT ENCOURAGED TO EAT AND DRINK IN A UPRIGHT SITTING POSITION AT 90 DEGREES. 1200 PT ATE HIS LUNCH. NO COMPLAINTS AT THIS TIME. 1400 DRESSING TO THE SACRUM CHANGED. PT TOLERATED. 1600 PT ENCOURAGED TO ORDER HIS SUPPER AN HE DID. COMFORT MEASURES IN PLACE. WILL CONTINUE TO MONITOR.
[2020-11-27 20:34] VITALS: BP 110/41; PULSE 84; TEMP 97.8
[2020-11-27 22:57] VITALS: BP 118/48; PULSE 77; TEMP 98.5
[2020-11-28 03:32] VITALS: BP 120/63; PULSE 74; TEMP 98.4
[2020-11-28 06:57] LABS: MEAN CELL VOLUME 99 fl (80.0-100.0); MEAN CORPUSCULAR HGB CONC 33 g/dl (33.0-37.0); MEAN PLATELET VOLUME 11.3 fl (7.4-10.4); PLATELET COUNT 85 K/mm3 (130-400); RED BLOOD COUNT 2.93 M/mm3 (4.20-5.60); REDCELL DISTRIBUTION WIDTH-CV 15.2 % (11.5-14.5)
[2020-11-28 07:00] LABS: HEMOGLOBIN 9.5 g/dl (13.5-18.0); MEAN CORPUSCULAR HEMOGLOBIN 32 pg (27.0-31.0)
[2020-11-28 07:09] LABS: ALBUMIN 2.5 gm/dL (3.5-5.0); BILIRUBIN,TOTAL 3.2 mg/dL (0.0-1.0); CALCIUM 8.2 mg/dL (8.4-10.2); CREATININE, serum 0.45 (0.66-1.25); MAGNESIUM 1.8 mg/dL (1.6-2.3); POTASSIUM 3.8 mmol/L (3.4-5.0); TOTAL PROTEIN 6.6 gm/dL (6.4-8.2)
[2020-11-28 07:31] VITALS: BP 109/49; PULSE 66; TEMP 98.3
--- NOTE | 2020-11-28 09:00 | NUR ---
Patient sleeping in bed, easily awakened with verbal command. A&Ox4. VSS. IV CDI. Denies pain and discomfort. Nursing staffx2 repositioned patient in bed for breakfast. Patient independent with feeds. Seizure precautions in place. No further needs expressed. Call light within reach. Bed alarm on
[2020-11-28] MEDS ORDERED: NYSTATIN OR100 MU/ML PO (09:05)
[2020-11-28] MEDS ORDERED: THIAMINE 1100 MG/TAB PO (09:07)
[2020-11-28] MEDS ORDERED: DUO-KAPS1 CAP PO (09:07)
[2020-11-28] MEDS ORDERED: FOLIC ACID 11 MG/TA1 PO (09:07)
[2020-11-28] MEDS ORDERED: PREDNISOLO15 MG/5 M3 PO (09:12)
[2020-11-28] MEDS ORDERED: ALDACTONE 100M100 MG PO (09:14)
[2020-11-28] MEDS ORDERED: TOPROL XL 25MG25 MG PO (09:16)
[2020-11-28] MEDS ORDERED: LACTULOSE10 GM/153 PO (09:17)
[2020-11-28 11:55] VITALS: BP 107/61; PULSE 63; TEMP 97.4
--- NOTE | 2020-11-28 13:12 | NUR ---
Jennie, IPR Director, reports that she is able to take the patient today. ALLAN updated Gris at [facility]. ALLAN left a message for Ella at [facility] with the update. The patient is to discharge today, 11/28, to [facility]. No additional needs at this time.
--- NOTE | 2020-11-28 15:00 | NUR ---
Patient taken by wheelchair to room 337 by nursing staff. , personal belongings and discharge paperwork with the patient. IV removed, tip intact, gauze and coban applied. No further needs expressed from the patient.
== END 2020-11-28 15:00 | DRG 896 ==
LOC: COL.ER 16:29 → MEDICAL 20:22
PROVIDERS: Internal Medicine; Internal Medicine Gastroenterology; Physician Assistant; Student in an Organized Health Care Education/Training Program; ADMIT Internal Medicine
DX: F10.129 Alcohol abuse with intoxication, unspecified (principal); I21.4 Non-ST elevation (NSTEMI) myocardial infarction; J96.01 Acute respiratory failure with hypoxia; J18.9 Pneumonia, unspecified organism; E87.2 Acidosis; I25.110 Atherosclerotic heart disease of native coronary artery with unstable angina pectoris; E44.0 Moderate protein-calorie malnutrition; B37.0 Candidal stomatitis; Q21.1 Atrial septal defect; Z20.822 Contact with and (suspected) exposure to COVID-19; D69.6 Thrombocytopenia, unspecified; I95.9 Hypotension, unspecified; K70.9 Alcoholic liver disease, unspecified; K70.11 Alcoholic hepatitis with ascites; I45.10 Unspecified right bundle-branch block; I08.1 Rheumatic disorders of both mitral and tricuspid valves; G40.909 Epilepsy, unspecified, not intractable, without status epilepticus; F10.130 Alcohol abuse with withdrawal, uncomplicated; E87.6 Hypokalemia; E83.42 Hypomagnesemia; E11.9 Type 2 diabetes mellitus without complications; Y90.8 Blood alcohol level of 240 mg/100 ml or more; R40.0 Somnolence; M54.9 Dorsalgia, unspecified; G89.29 Other chronic pain; E78.5 Hyperlipidemia, unspecified; Z68.25 Body mass index [BMI] 25.0-25.9, adult; F17.210 Nicotine dependence, cigarettes, uncomplicated; W18.30XA Fall on same level, unspecified, initial encounter; Y92.002 Bathroom of unspecified non-institutional (private) residence as the place of occurrence of the external cause; Z79.82 Long term (current) use of aspirin; Z95.5 Presence of coronary angioplasty implant and graft
CPT/HCPCS: 99223-AI; 99232-AI; 99233-AI; 99239; J0456; J2060; J2270; J2543; J3411; J3430; J3475; J7030; J7050; J7120; J7510

== ENCOUNTER 2020-11-28 11:23 | Inpatient (IN) | payer OTHER ==
[~2020-11-28] VITALS: Ht 172.7 cm; Wt 69.8 kg
[~2020-11-28 11:23] MED LIST changes: +ALDACTONE 100M100 MG PO; +DUO-KAPS1 CAP PO; +FOLIC ACID 11 MG/TA1 PO; +LACTULOSE10 GM/153 PO; +NYSTATIN OR100 MU/ML PO; +PREDNISOLO15 MG/5 M3 PO; +THIAMINE 1100 MG/TAB PO
--- NOTE | 2020-11-28 14:50 | NUR ---
Patient is an inhouse transfer from medical Rm 312 to [facility] RM 337. Patient has lidocaine patch on lower back and nicotine patch or right shoulder. Patient c/o burning in toes, bilat. Patient has bruising and abrasions BUE. Patient was on seizure precaution with no seizure activity. Patient has thrush and stage II pressure ulcer on coccyx covered with Miplex. Patient has small formed BM today. Will continue to monitor throughout shift.
[2020-11-28 17:33] VITALS: BP 121/55; PULSE 86; TEMP 98.6
--- NOTE | 2020-11-28 21:09 | NUR ---
Pt has been good. was at the bedside today. VSS. Pain rated 0/10. Will continue to monitor.
[2020-11-29 04:43] VITALS: BP 127/57; PULSE 67; TEMP 97.4
--- NOTE | 2020-11-29 12:07 | NUR ---
Traffic Technician offered to pray but patient requested visiting only for now. Spouse came in room.
--- NOTE | 2020-11-29 14:53 | NUR ---
SW met with patient to complete intake. Patient's Pat [phone] present at the time of intake. Patient states he lives in [place] with spouse. Patient provides that he uses a walker, and is independent with ADL's. Patient states that his PCP is Dr. Salas, pharmacy is [facility] and able to afford his medications. Patient appointed spouse as DPOA-HC during intake. Documentation presented reviewed, completed, signed by patient and witnessed by nurse. Original copy placed in chart and copies made for patient files. Patient states that his plan is to return home upon DC and has no concerns with doing so. SW will continue to follow. DC Plan: Home with spouse
[2020-11-29 15:12] VITALS: BP 108/54; PULSE 63; TEMP 97.7
--- NOTE | 2020-11-29 19:20 | NUR ---
Patient attended all his therapies this shift. Denied any need for pain meds. Observed that patient had a nicotine patch on him and lidoderm patch, but there were no orders for these two items. Call placed to Dr. Baltazar for orders for these meds. See new orders. Patient has a stage II on his bottom and mepilex is in place. Patient's BIM was completed and see new order for ST. He is currently resting in bed, call light in reach and by his side. Reported off to night nurse.
--- NOTE | 2020-11-29 21:08 | NUR ---
Pt has been in a good spirit. Pain rated 4/10. tylenol PRN was given. Will continue to monitor.
[2020-11-30 05:42] VITALS: BP 114/57; PULSE 52; TEMP 97.9
--- NOTE | 2020-11-30 12:55 | NUR ---
Placed nicotine patch on patients left upper arm and lidocain patch on patient's lower back this AM. Patient takes pills whole with water. He is forgetful at times. Patient tolerating diet well this shift. This nurse walked patient around surgical unit this morning and he was a SBA with gaitbelt and walker. Patient continues to have coccyx pain due to his stage II ulcer and this nurse applied aquacel AG over open area and secured it with a mepilex bandage. Patient tolerated well. This nurse placed an egg crate cushion on patient bed to help pressure ulcer pain. Patient's stopped by to visit this morning.
[2020-11-30 15:05] VITALS: BP 100/37; PULSE 71; TEMP 98.3
--- NOTE | 2020-11-30 22:35 | NUR ---
Pt has been in good spirit. visited. Pain rated 0/10. Will continue to monitor.
[2020-12-01 05:17] VITALS: BP 115/52; PULSE 60; TEMP 97.8
--- NOTE | 2020-12-01 06:30 | NUR ---
Report received from JERRI De La Rosa. Patient is up and going to bathroom. Patient denies pain at this time. Call light and bedside table are within reach. Will continue to monitor patient throughout shift.
--- NOTE | 2020-12-01 09:44 | NUR ---
Welcomed pt to Rehab unit. Explained the rehab process & goals. Complete SW assessment w/ pt. He is alert & oriented & able to communicate his needs & wants. He wears glasses for reading, hearing is intact, & only wears his upper dentures. He lives w/ his & daughter. Their home is a 1 story duplex w/ no steps to enter. The bathroom has a tub/shower combo w/ curtain but no grab bar. The toilet is standard height. Reported he walks w/out a device & independent w/ his self care. He also does his laundry & medication management. He has his a shower chair. He was not receiving any services. Pharmacy: [facility] & reports he has no concerns or issues w/ affording her medications. PCP: Dr. Salas. His is his DPOA & reports they just completed it several days ago. We did talk about counceling as pt is interested in staying sober but stated that he does not feel AA is for him but would be interested in 1:1 counseling. Pt had no questions/concerns at this time about his rehab stay. SW will continue to provide support & assist w/ d/c planning.
--- NOTE | 2020-12-01 13:37 | NUR ---
Admission QIM scores were reviewed by the team. Code of 4 chosen for oral hygiene was determined by team discussion to be the most usual performance before interventions for this patient during the assessment period. Code of 2 chosen for toilet hygiene was determined by team discussion to be the most usual performance for this patient during the assessment period. Code of 3 chosen for toileting transfers was determined by team discussion to be the most usual performance for this patient during the assessment period. Code of 2 chosen for lower body dressing was determined by team discussion to be the most usual performance for this patient during the assessment period. Code of 4 for sit to stand was determined by team discussion to be the most usual performance for this patient during the assessment period. Code of 3 for chair/bed to chair transfers was determined by team discussion to be the most usual performance for this patient during the assessment period. Code of 3 chosen for walk 10 feet was determined by team discussion to be the most usual performance for this patient during the assessment period.--Jennie Gaviria,
--- NOTE | 2020-12-01 15:30 | NUR ---
Patient is through with all therapies today and is resing in bed. Call light and bedside table are within reacch.
[2020-12-01 17:15] VITALS: BP 106/39; PULSE 64; TEMP 98.2
--- NOTE | 2020-12-02 11:08 | NUR ---
Patient currently working with group therapy at this time.
--- NOTE | 2020-12-02 14:21 | NUR ---
Patient attended all therapies this morning/afternoon. He is independent with all his grooming and toileting hygiene. Patient denies pain this morning. Will continue to monitor.
--- NOTE | 2020-12-02 14:33 | NUR ---
Patient returned from therapy and is now resting in bed, call light in reach and by his side.
[2020-12-02 17:37] VITALS: BP 118/44; PULSE 72; TEMP 98.7
[2020-12-02 19:34] VITALS: BP 118/50; PULSE 70; TEMP 98.5
--- NOTE | 2020-12-03 02:36 | NUR ---
PATIENT ALERT AND ORIENTED X4. DENIES PAIN. AMBULATES WITH WALKER STAND BY ASSIST. MULTIPLE LARGE BM. VSS. CALL LIGHT IN REACH. WILL CONTINUE TO MONITOR.
[2020-12-03 04:19] VITALS: BP 118/54; PULSE 58; TEMP 98.4
[2020-12-03 08:14] LABS: BASO % 0.5 % (0.0-2.0); EOS # 0.1 (0.0-0.7); EOS % 1.8 % (0-4.0); GRAN # 4.7 (1.4-6.5); GRAN % 72.1 % (42.2-75.2); LYMPH # 0.9 (1.2-3.4); LYMPH % 14.4 % (20.0-51.0); MEAN CELL VOLUME 98 fl (80.0-100.0); MEAN CORPUSCULAR HGB CONC 32 g/dl (33.0-37.0); MEAN PLATELET VOLUME 10.7 fl (7.4-10.4); MONO # 0.7 (0.1-0.6); MONO % 10.7 % (1.7-9.3); PLATELET COUNT 94 K/mm3 (130-400); RED BLOOD COUNT 3.09 M/mm3 (4.20-5.60); REDCELL DISTRIBUTION WIDTH-CV 15.9 % (11.5-14.5)
[2020-12-03 08:20] LABS: HEMATOCRIT 30.3 % (42.0-52.0); HEMOGLOBIN 9.8 g/dl (13.5-18.0); MEAN CORPUSCULAR HEMOGLOBIN 32 pg (27.0-31.0)
[2020-12-03 08:24] LABS: ALBUMIN 2.5 gm/dL (3.5-5.0); BILIRUBIN,TOTAL 2.5 mg/dL (0.0-1.0); CALCIUM 8.2 mg/dL (8.4-10.2); CREATININE, serum 0.56 (0.66-1.25); MAGNESIUM 1.9 mg/dL (1.6-2.3); POTASSIUM 3.8 mmol/L (3.4-5.0); TOTAL PROTEIN 6.2 gm/dL (6.4-8.2)
--- NOTE | 2020-12-03 14:40 | NUR ---
Reveiwed team conference notes w/ pt & his . They stated they understood & agreed w/ level of functioning. Informed them of d/c for 12/09/20, w/ recommendations for outpatient PT/OT/ST. Also told them the team is recommending tub transfer bench & grab bars. The pt did comment that he would like to get a walker for just in case. Inquired where they would like to get the items from & was told [facility]. Discussed the outpatient therapy & explained the only one that has all three is [facility], which they were fine w/ using. We also talked about 1:1 counseling for his alcohol treatment & they are interested in resources. They reported being very pleased w/ everything that everyone is doing for them.
[2020-12-03 17:53] VITALS: BP 1143/43; PULSE 75; TEMP 98.6
--- NOTE | 2020-12-03 19:35 | NUR ---
Patient attended all therapies this shift. He tolerated diet well. He had a few bowel movements that were recorded in the EMR. He was independent with grooming and eating. He was supervision with ambulation using walker and gait belt. Bandage to patient's stage II on his Coccyx was changed and new dressing applied. He was seen by Dr. Baltazar. See notes from todays visit in EMR. Patient denied pain this shift. His is currently here visiting. Reported off to night nurse.
--- NOTE | 2020-12-03 21:09 | NUR ---
PATIENT RESTING IN BED. ALERT AND ORIENTED X4. DENIES ANY DISCOMFORT AT THIS TIME. ASSESSMENT DONE, AMBULATE TO BR WITH WALKER AND STAND BY ASSIST. TYLENOL GIVEN FOR SLEEP. CALL LIGHT WITHIN REACH. WILL CONTINUE TO MONITOR.
[2020-12-04 06:13] VITALS: BP 109/44; PULSE 74; TEMP 97.9
--- NOTE | 2020-12-04 06:30 | NUR ---
Report received from JERRI Cleary. Patient is up and sitting on the side of his bed and putting on slippers. Patient states he does not have to use the bathroom at this time. Patient denies pain at this time. Call light and bedside table are within reach. Will continue to monitor patient throughout shift.
--- NOTE | 2020-12-04 09:59 | NUR ---
Contacted [facility] & spoke w/ Noelle. Ordered a r/walker, tub transfer bench, & grab bars for pending d/c on 12/09/20. Faxed equipment request information.
--- NOTE | 2020-12-04 13:50 | NUR ---
Visited w/ pt's , Yenni. Informed her that SW had contacted [facility] & ordered the r/walker, tub transfer bench, & grab bars. Also provided her w/ a list of counseling services in [place] for them. Told her if they want any help w/ setting up an appointment, ALLAN would help them. She did not have any questions at this time.
--- NOTE | 2020-12-04 14:30 | NUR ---
Patient is finished with all therapies and is resting on side of bed. Will continue to monitor throughout shift. Patient denies pain at this time.
--- NOTE | 2020-12-04 14:45 | NUR ---
Patient is through with all therapies for today. Patient is resting on side of bed.
--- NOTE | 2020-12-04 15:00 | NUR ---
Patient is through will all therapies. Patient is resting in bed. Will continue to monitor patient throughout shift.
[2020-12-04 17:10] VITALS: BP 115/46; PULSE 61; TEMP 97.7
[2020-12-04 18:26] VITALS: BP 115/46; PULSE 68; TEMP 97.8
[2020-12-05 06:07] VITALS: BP 120/49; PULSE 60; TEMP 97.5
--- NOTE | 2020-12-05 06:30 | NUR ---
Report received from JERRI Cleary. Patient is sitting on side of bed. Call light and bedside table are within reach. WIll continue to monitor patient throughout shift.
--- NOTE | 2020-12-05 07:05 | NUR ---
PATIENT HAD AN UNEVENTFUL NIGHT. VSS. TYLENOL GIVEN FOR MILD DISCOMFORT. AMBULATES TO BR WITHOUT WALKER WITH SLIGHT STEADY GAIT. CALL APPROPRIATELY FOR PET TRAINING INSTRUCTOR. WILL CONTINUE TO MONITOR.
--- NOTE | 2020-12-05 11:30 | NUR ---
Contacted [facility] to schedule PT/OT/ST after d/c. Was not available so left message. Received call back from Ashwini requeting referral information which ALLAN provided. She will call back once they get all scheduled.
--- NOTE | 2020-12-05 13:18 | NUR ---
Family meeting was conducted w/ pt's , Yenni, & daughter, Noelle. Also present was PT, OT, ST, & SW/Director. The team reviewed how pt has been doing from a functional & cognitive level. They are pleased w/ the progress & how well pt is doing. Informed them making him Independent in his room & can walk in halls w/ family. Informed them of d/c for 12/09/20, w/ recommendation for outpatient PT/OT/ST. The family asked questions which team answered.
--- NOTE | 2020-12-05 14:53 | NUR ---
Patient has completed all therapies for the day and is relaxing in bed.
--- NOTE | 2020-12-05 14:54 | NUR ---
Patient is now MOD I in room
[2020-12-05 17:44] VITALS: BP 110/42; PULSE 69; TEMP 97.7
--- NOTE | 2020-12-05 21:25 | NUR ---
Pt has been good. Pain rated 0/10. VSS. Will continue to monitor.
[2020-12-06 05:24] VITALS: BP 115/49; PULSE 54; TEMP 97.3
[2020-12-06 12:00] VITALS: BP 107/54; PULSE 59; TEMP 98.3
[2020-12-06 16:00] VITALS: BP 113/43; PULSE 70; TEMP 98.1
--- NOTE | 2020-12-06 21:52 | NUR ---
Pt has been ok. Pain rated 0/10. Vss, Will continue to monitor.
[2020-12-07 04:57] VITALS: BP 119/49; PULSE 77; TEMP 98.3
--- NOTE | 2020-12-07 07:31 | NUR ---
Patient independent in room. Patient very talkative this morning. Denies pain this morning, reporting that even his knee aint bothering him. Awaiting breakfast this morning.
[2020-12-07 17:10] VITALS: BP 115/53; PULSE 65; TEMP 98
--- NOTE | 2020-12-07 18:18 | NUR ---
Patient tolerated his diet well this shift. Denies any questions at this time. Bandage was changed to patient's bottom this afternoon. It is continuing to decrease in size and this nurse applied aquacel AG to area and secured with mepilex. Will continue to monitor.
--- NOTE | 2020-12-07 21:32 | NUR ---
Pt has been good. Pain rated 0/10. VSS.Will continue to monitor.
[2020-12-08 05:15] VITALS: BP 108/54; PULSE 87; TEMP 98.1
--- NOTE | 2020-12-08 06:30 | NUR ---
Report received from JERRI Haque. Patient is sitting on side of bed and denies pain at this time. Call light and bedside table are within reach. Will continue to monitor patient throughout shift.
--- NOTE | 2020-12-08 06:30 | NUR ---
Report received from JERRI Cleary. Patient is sitting on side of bed waiting to eat breakfast. Bedside table and call light are within reach. Will continue to monitor patient throughout shift.
--- NOTE | 2020-12-08 14:35 | NUR ---
Visited w/ pt about d/c for tomorrow, 12/09/20. He informed SW that he is ready to go & feels he is in a much better place than where he was when he was admitted to the hospital. We talked about abstaining from alcohol once he is home. He swear to SW that he is done w/ that & has a plan to go to AA meeting. We also talked about seeking counseling, which he continues to be interested in. He did no have any questions or concerns about his d/c at this time.
--- NOTE | 2020-12-08 14:45 | NUR ---
Patient has completed all therapies and is sitting on side of bed. Patient denies pain at this time. Call light and bedside table are within reach.
--- NOTE | 2020-12-08 18:00 | NUR ---
Patient is visiting with .
[2020-12-08 18:24] VITALS: BP 115/48; PULSE 62; TEMP 97.8
[2020-12-09 05:17] VITALS: BP 107/50; PULSE 67; TEMP 97.8
--- NOTE | 2020-12-09 06:54 | NUR ---
Report received by JERRI De La Rosa. Patient is in the restroom. Call light and bedside table are within reach of bed. Patient is independent in room. Will continue to monitor patient throughout shift.
[2020-12-09] MEDS ORDERED: DEBROX OT (08:57)
[2020-12-09] MEDS ORDERED: BLUE-EMU LIDOC1 EACH TP (08:58)
[2020-12-09] MEDS ORDERED: LACTULOSE10 GM/153 PO (09:05)
[2020-12-09] MEDS ORDERED: ALDACTONE 100M100 MG PO (09:06)
[2020-12-09] MEDS ORDERED: TOPROL XL 25MG25 MG PO (09:06)
[2020-12-09] MEDS ORDERED: PREDNISOLO15 MG/5 M3 PO (09:06)
--- NOTE | 2020-12-09 09:06 | NUR ---
Visited w/ pt about his d/c today. He did not have any questions or concerns. Wished him the best & encouraged him to stay sober.
--- NOTE | 2020-12-09 10:45 | NUR ---
Patient health summary, discharge summary, and home meds printed and reviewed with patient and . Stressed importance of follow up appointments. Reviewed medications, provided printed copy of prescription. Belongings gathered by GABRIEL Morales. Pt transported by wheelchair by LPN. Andrew and seatbelted for ride home. Patient and denied questions.
== END 2020-12-09 10:45 | disposition home or self-care (01) | DRG 91 ==
PROVIDERS: ADMIT Internal Medicine
DX: G72.1 Alcoholic myopathy (principal); J18.9 Pneumonia, unspecified organism; E44.0 Moderate protein-calorie malnutrition; E87.2 Acidosis; B37.0 Candidal stomatitis; Q21.1 Atrial septal defect; K70.10 Alcoholic hepatitis without ascites; D69.6 Thrombocytopenia, unspecified; G40.909 Epilepsy, unspecified, not intractable, without status epilepticus; I25.2 Old myocardial infarction; E11.9 Type 2 diabetes mellitus without complications; I25.10 Atherosclerotic heart disease of native coronary artery without angina pectoris; I95.9 Hypotension, unspecified; L21.9 Seborrheic dermatitis, unspecified; Z68.23 Body mass index [BMI] 23.0-23.9, adult; E87.6 Hypokalemia; E83.42 Hypomagnesemia; G89.29 Other chronic pain; M54.9 Dorsalgia, unspecified; F17.210 Nicotine dependence, cigarettes, uncomplicated; E78.5 Hyperlipidemia, unspecified; R53.81 Other malaise; Z79.82 Long term (current) use of aspirin; Z79.52 Long term (current) use of systemic steroids; Z79.02 Long term (current) use of antithrombotics/antiplatelets; Z95.5 Presence of coronary angioplasty implant and graft
CPT/HCPCS: 99222-AI; 99232-AI; 99239; J7510

== ENCOUNTER → 2020-12-30 | Outpatient (CLI) | payer OTHER ==
[~2020-12-30] MED LIST changes: +BLUE-EMU LIDOC1 EACH TP; +DEBROX OT
== END ==
LOC: COL.RAD 10:00
DX: K70.10 Alcoholic hepatitis without ascites (principal); K80.20 Calculus of gallbladder without cholecystitis without obstruction; K76.0 Fatty (change of) liver, not elsewhere classified

== ENCOUNTER 2021-01-16 10:30 | Outpatient (RCR) | payer OTHER | END 2021-03-10 | disposition home or self-care (01) | LOC: MKS.ESL.OT | DX: G72.1 Alcoholic myopathy (principal) ==

== ENCOUNTER 2021-09-25 20:35 | Observation (INO) | payer MEDICARE ==
[~2021-09-25] VITALS: Ht 177.8 cm; Wt 89.1 kg
[2021-09-25 21:19] LABS: BASO # 0.1 K/mm3 (0.0-0.2); BASO % 1.4 % (0.0-2.0); EOS # 0.1 K/mm3 (0.0-0.7); EOS % 2.7 % (0.0-4.0); GRAN # 3.5 K/mm3 (1.4-6.5); LYMPH # 0.8 K/mm3 (1.2-3.4); LYMPH % 14.9 % (20.0-51.0); MEAN CELL VOLUME 95 fl (80.0-100.0); MEAN CORPUSCULAR HGB CONC 32 g/dl (33.0-37.0); MEAN PLATELET VOLUME 10.7 fl (7.4-10.4); MONO # 0.6 K/mm3 (0.1-0.6); MONO % 11.6 % (1.7-9.3); PLATELET COUNT 50 K/mm3 (130-400); RED BLOOD COUNT 2.82 M/mm3 (4.20-5.60)
[2021-09-25 21:23] LABS: HEMATOCRIT 26.9 % (42.0-52.0); HEMOGLOBIN 8.6 g/dl (13.5-18.0); MEAN CORPUSCULAR HEMOGLOBIN 30 pg (27-31)
[2021-09-25 21:28] LABS: CALCIUM 8.5 mg/dL (8.4-10.2); CREATININE, serum 1.12 mg/dL (0.72-1.25); POTASSIUM 4.2 mmol/L (3.5-4.5)
[2021-09-25 21:37] LABS: TROPONIN-I 0.514 ng/mL (0.00-0.033)
[2021-09-25 21:44] LABS: ERYTHROCYTE SEDIMENTATION RATE 27 mm/hr (0-30)
[2021-09-25] MEDS ORDERED: REMERON30 MG PO (23:40)
[2021-09-25] MEDS ORDERED: LASIX 40MG TABL40 MG PO (23:40)
[2021-09-25] MEDS ORDERED: ALDACTONE50 MG PO (23:41)
[2021-09-25] MEDS ORDERED: LOPRESSOR 225 MG/TAB PO (23:41)
[2021-09-25] MEDS ORDERED: AMBIEN 10MG10 MG PO (23:41)
[2021-09-25] MEDS ORDERED: PROTONIX 40MG T40 MG PO (23:42)
[2021-09-25] MEDS ORDERED: NEURONTIN100 MG/CAP PO ×2 (23:42)
[2021-09-25] MEDS ORDERED: MULTI VITAMINS1 TAB PO (23:44)
[2021-09-26 00:15] LABS: INR 1.5 (0.8-3.0); PROTHROMBIN TIME 16.7 SECONDS (9.7-12.8)
[2021-09-26 00:18] LABS: PARTIAL THROMBOPLASTIN TIME 45.4 SECONDS (26.0-37.0)
[2021-09-26 00:28] LABS: ALBUMIN 2.7 gm/dL (3.4-4.8); C-REACTIVE PROTEIN 1.78 mg/dL (0.00-0.50); TOTAL PROTEIN 6.1 gm/dL (6.2-8.1)
[2021-09-26] MEDS ORDERED: ALDACTONE 100M100 MG PO (00:30)
--- NOTE | 2021-09-26 00:31 | NUR ---
REPORTED TROPONIN 0.478 TO KATIE SR.
--- NOTE | 2021-09-26 00:46 | NUR ---
PT ARRIVES VIA W/C TO ROOM 327.
[2021-09-26 00:47] LABS: BILIRUBIN,DIRECT 1.5 mg/dL (0.0-0.5)
[2021-09-26 01:05] VITALS: BP 152/54; PULSE 87; TEMP 99.2
--- NOTE | 2021-09-26 03:30 | NUR ---
PT REPORTS PAIN TO RT FOOT AND HEELS. OFFERED TO ELEVATE ON PILLOWS. DECLINED AT THIS TIME HE IS URINATING OFTEN D/T LASIX IV. MEDICATED WITH DILAUDID 0.25MG IVP AT THIS TIME. FLUSHED LAC INT WITHOUT PROBLEM.
[2021-09-26 03:37] VITALS: BP 119/48; PULSE 83; TEMP 98.8
--- NOTE | 2021-09-26 04:48 | NUR ---
ELEVATED PTS HEELS ON PILLOW. REPORTS PAIN MEDS HELPED. VOIDING WELL SINCE LASIX, EMPTIED 600CC FROM URINAL AT THIS TIME. REPORTED TROPONIN 0.444 TO KATIE VARGAS
[2021-09-26 07:32] VITALS: BP 123/51; PULSE 78; TEMP 98.5
--- NOTE | 2021-09-26 10:35 | NUR ---
RADIOLOGY NOTIFIED OF NEED FOR PT ECHO.
[2021-09-26 12:21] VITALS: BP 128/53; PULSE 82; TEMP 98.4
--- NOTE | 2021-09-26 13:23 | NUR ---
PT HAS BEEN SLEEPING INTERMITTENTLY IN BED ALL MORNING, AWAKENS FOR MEALS. PT'S HAS BEEN @ BEDSIDE. PT STATES THAT HE HAS BILATERAL HEEL PAIN, RATES 5/10. RESPIRATIONS UNLABORED ON ROOM AIR. CALL LIGHT WITHIN REACH.
[2021-09-26] MEDS ORDERED: ASPIRIN E.C. 8181 MG PO (13:25)
[2021-09-26] MEDS ORDERED: ROXICODONE 55 MG/TAB PO (13:28)
[2021-09-26] MEDS ORDERED: PROAIR HFA0.09 MG/AC IH (13:36)
[2021-09-26] MEDS ORDERED: DOXYCYCLINE 10100 MG PO (13:36)
[2021-09-26] MEDS ORDERED: MEDROL 4MG DOSPA4 MG PO (13:36)
--- NOTE | 2021-09-26 14:08 | NUR ---
SW met with patient to complete intake. Patient was very tired and stated could assist with answering questions. Patient and Pat [phone] live in [facility]. Patient does utilize a walker and has a cane that he occasionally uses. Independent with ADL's and no home health services utilized at this time. PCP is Dr. Salas, and pharmacy is [facility]. DPOA/HC is spouse. Plan is to return to his home upon DC. SW will continue to follow. DC Plan: home
--- NOTE | 2021-09-26 15:39 | NUR ---
PT TO BE DISCHARGED TO HOME WITH SPOUSE @ THIS TIME, TRANSPORTED TO PRIVATE VEHICLE VIA WC PUSHED BY SUGEY AGUILA. PT ET GIVEN DISCHARGE EDUCATION ET INSTRUCTIONS, QUESTIONS ANSWERED. PERIPHERAL IV DCED ET TELE REMOVED. PT DRESSES SELF IN STREET CLOTHES.
== END 2021-09-26 15:40 | disposition home or self-care (01) ==
LOC: COL.ER 20:35 → SURG 22:23
PROVIDERS: Emergency Medicine; Nurse Practitioner Family; ADMIT Internal Medicine
DX: R77.8 Other specified abnormalities of plasma proteins (principal); I25.2 Old myocardial infarction; I10 Essential (primary) hypertension; I25.10 Atherosclerotic heart disease of native coronary artery without angina pectoris; E78.5 Hyperlipidemia, unspecified; R06.02 Shortness of breath; R73.9 Hyperglycemia, unspecified; M79.671 Pain in right foot; L97.519 Non-pressure chronic ulcer of other part of right foot with unspecified severity; K80.20 Calculus of gallbladder without cholecystitis without obstruction; D69.6 Thrombocytopenia, unspecified; D64.9 Anemia, unspecified; G40.909 Epilepsy, unspecified, not intractable, without status epilepticus; F17.210 Nicotine dependence, cigarettes, uncomplicated; Z79.82 Long term (current) use of aspirin; Z79.899 Other long term (current) drug therapy; Z20.822 Contact with and (suspected) exposure to COVID-19
CPT/HCPCS: A9284; G0378; J1170; J1940; J7512; Q9967

== ENCOUNTER 2022-01-13 16:26 | Emergency (ER) | payer MEDICARE ==
[~2022-01-13] VITALS: Ht 180.3 cm; Wt 81.8 kg
[~2022-01-13 16:26] MED LIST changes: +ALDACTONE50 MG PO; +AMBIEN 10MG10 MG PO; +ASPIRIN E.C. 8181 MG PO; +LASIX 40MG TABL40 MG PO; +MEDROL 4MG DOSPA4 MG PO; +MULTI VITAMINS1 TAB PO; +NEURONTIN100 MG/CAP PO; +PROAIR HFA0.09 MG/AC IH; +PROTONIX 40MG T40 MG PO; +REMERON30 MG PO; +ROXICODONE 55 MG/TAB PO
[2022-01-13 16:56] VITALS: TEMP 98.4
[2022-01-13 17:58] LABS: MEAN CELL VOLUME 91 fl (80.0-100.0); MEAN CORPUSCULAR HGB CONC 34 g/dl (33.0-37.0); MEAN PLATELET VOLUME 11.2 fl (7.4-10.4); RED BLOOD COUNT 3.13 M/mm3 (4.20-5.60); REDCELL DISTRIBUTION WIDTH-CV 17.5 % (11.5-14.5)
[2022-01-13 18:00] LABS: HEMATOCRIT 28.6 % (42.0-52.0); HEMOGLOBIN 9.6 g/dl (13.5-18.0); MEAN CORPUSCULAR HEMOGLOBIN 31 pg (27-31)
[2022-01-13 18:02] LABS: PLATELET COUNT 31 K/mm3 (130-400)
[2022-01-13 18:10] LABS: ALBUMIN 2.7 gm/dL (3.4-4.8); BILIRUBIN,TOTAL 3.9 mg/dL (0.2-1.2); C-REACTIVE PROTEIN 13.86 mg/dL (0.00-0.50); CALCIUM 8.7 mg/dL (8.4-10.2); CREATININE, serum 1.04 mg/dL (0.72-1.25); POTASSIUM 4.3 mmol/L (3.5-4.5); TOTAL PROTEIN 6.1 gm/dL (6.2-8.1)
[2022-01-13 18:16] LABS: TROPONIN-I 0.01 ng/mL (0.00-0.033)
[2022-01-13 18:39] LABS: ANISOCYTOSIS 2+; BAND 23 % (0-10); BURR CELLS 2+; LYMPHOCYTE 1 % (20.0-51.0); NEUTROPHILS 76 % (42.0-75.2); OVALOCYTES 1+; PLATELET ESTIMATE DECREASED (NORMAL)
[2022-01-13 18:56] LABS: COLLECTION METHOD CLEAN CATCH
[2022-01-13 19:08] LABS: SQUAMOUS EPITHELIAL 0-2 /hpf (0-10); URINE APPEARANCE Clear (CLEAR/HAZY); URINE BACTERIA None Seen /hpf (NONE SEEN); URINE BLOOD Negative (NEGATIVE); URINE COLOR Yellow (YELLOW); URINE GLUCOSE Negative (NEGATIVE); URINE KETONE Negative (NEGATIVE); URINE NITRATE Negative (NEGATIVE); URINE PROTEIN(semi-quant) Negative (NEGATIVE)
[2022-01-13] MEDS ORDERED: PERCOCET 325 MG1 TA2 PO (20:37)
[2022-01-13] MEDS ORDERED: ZOFRAN ODT4 MG PO (20:39)
[2022-01-13 20:59] VITALS: BP 113/56; PULSE 92
[2022-01-14] MEDS ORDERED: LEVAQUIN 750MG750 M1 PO (14:05)
== END 2022-01-13 21:05 | disposition home or self-care (01) ==
LOC: COL.ER 16:26
PROVIDERS: Family Medicine
DX: M86.8X7 Other osteomyelitis, ankle and foot (principal); R07.89 Other chest pain; G89.29 Other chronic pain; M54.9 Dorsalgia, unspecified; Z20.822 Contact with and (suspected) exposure to COVID-19
CPT/HCPCS: J2270; J2405; J7030

== ENCOUNTER 2022-02-03 21:19 | Inpatient (IN) | payer MEDICARE ==
[~2022-02-03] VITALS: Ht 180.3 cm; Wt 76.5 kg
[~2022-02-03 21:19] MED LIST changes: +LEVAQUIN 750MG750 M1 PO; +ZOFRAN ODT4 MG PO
[2022-02-03 22:01] LABS: BASO # 0.1 K/mm3 (0.0-0.2); BASO % 0.5 % (0.0-2.0); EOS # 0.2 K/mm3 (0.0-0.7); EOS % 1.3 % (0.0-4.0); GRAN # 8.6 K/mm3 (1.4-6.5); LYMPH # 1.3 K/mm3 (1.2-3.4); LYMPH % 11.4 % (20.0-51.0); MEAN CELL VOLUME 98 fl (80.0-100.0); MEAN CORPUSCULAR HGB CONC 33 g/dl (33.0-37.0); MEAN PLATELET VOLUME 11.6 fl (7.4-10.4); MONO # 1.3 K/mm3 (0.1-0.6); MONO % 11.2 % (1.7-9.3); PLATELET COUNT 71 K/mm3 (130-400); RED BLOOD COUNT 2.95 M/mm3 (4.20-5.60)
[2022-02-03 22:02] LABS: HEMATOCRIT 28.9 % (42.0-52.0); HEMOGLOBIN 9.5 g/dl (13.5-18.0); MEAN CORPUSCULAR HEMOGLOBIN 32 pg (27-31)
[2022-02-03 22:07] LABS: COLLECTION METHOD CLEAN CATCH
[2022-02-03 22:14] LABS: ALBUMIN 1.9 gm/dL (3.4-4.8); BILIRUBIN,TOTAL 3.2 mg/dL (0.2-1.2); CALCIUM 7.6 mg/dL (8.4-10.2); CREATININE, serum 0.66 mg/dL (0.72-1.25); POTASSIUM 3.6 mmol/L (3.5-4.5); TOTAL PROTEIN 6.3 gm/dL (6.2-8.1)
[2022-02-03 22:18] LABS: URINE APPEARANCE Clear (CLEAR/HAZY); URINE COLOR OTHER (YELLOW)
[2022-02-03 22:19] LABS: URINE BLOOD TRACE-INTACT (NEGATIVE); URINE GLUCOSE Negative (NEGATIVE); URINE KETONE TRACE (NEGATIVE); URINE NITRATE Negative (NEGATIVE); URINE PROTEIN(semi-quant) Negative (NEGATIVE)
[2022-02-03 22:21] LABS: SQUAMOUS EPITHELIAL 0-2 /hpf (0-10); URINE BACTERIA None Seen /hpf (NONE SEEN)
[2022-02-04] VITALS (300 sets, daily range): BP systolic 97–141; BP diastolic 45–93; PULSE 78–94; TEMP 97.4–99.5; O2SAT 85–100
--- NOTE | 2022-02-04 01:20 | NUR ---
PT RECEIVED FROM ER VIA STRETCHER AT THIS TIME. MOVED TO ICU BED AND MONITORING. PT AFEBRILE, VSS, IN NO ACUTE DISTRESS. PT DOES C/O PAIN TO BACK/BUTTOCKS/FEET. STATES MEDS GIVEN IN ER DID NOT HELP VERY MUCH. PT HAS SINGLE LUMEN PICC LINE TO [place], IN PLACE FROM PREVIOUS FACILITY. INT TO L A/C PLACED IN ER. HYLTON CATHETER IN PLACE FROM PRIOR FACILITY WITH ORANGE, HAZY URINE. UA SENT IN ER. R FOOT HAS SUTURE TO LATERAL SIDE, WILL REPLACE BANDAGE AFTER PROVIDER HAS VISUALIZED WOUND. R GREAT TOE FOUND TO HAVE WHAT APPEARS TO BE BLOOD BLISTER OR DEEP WOUND. PT REPORTS OTHER FACILITY HAS BEEN USING A TYPE OF ANTIBIOTIC OINTMENT ON TOE. COCCYX FOUND TO HAVE TWO PENCIL ERASER TO DIME SIZE OPEN AREAS, STAGE 2 PRESSURE INJURIES. MEPELEX IN PLACE AND REPLACED DUE TO SOME LOOSE STOOL. PT STATES HAS BEEN WEARING DIAPERS FOR STOOL SINCE RECEIVING ENEMA A FEW DAYS AGO. WILL NOT USE DIAPERS AT THIS TIME, EXPLAINED TO PT FOR SKIN CARE/PROTECTION. PT STATES UNDERSTANDING. ORIENTED TO ROOM AND CONTROLS, CALL LIGHT IN HAND. WILL CONTINUE TO MONITOR.
[2022-02-04] MEDS ORDERED: DORYX100 PO (01:40)
[2022-02-04] MEDS ORDERED: PLAVIX 75MG TAB75 MG PO (01:41)
[2022-02-04] MEDS ORDERED: NICODERM C21 MG/PATC TD (01:51)
[2022-02-04] MEDS ORDERED: ROXICODONE 55 MG/TAB PO (01:51)
--- NOTE | 2022-02-04 02:00 | NUR ---
DRESSINGS PLACED TO BILAT FEET. R FOOT SUTURED INCISION PAINTED WITH BETADINE, COVERED WITH 4X4 AND ROLLED GAUZE. R GREAT TOE PAINTED WITH BETADINE AND FOOT COVERED IN ROLLED GAUZE. PAIN MEDICATION ORDERED AND WILL GIVE PER PRN ORDER.
--- NOTE | 2022-02-04 03:15 | NUR ---
Vancomycin Initial Dosing Pharmacy Note Ordering provider: Raghu Flanagan MD Indication/duration: HAP x 7 days Relevant comorbidities: HTN, DM, recent bacteremia & OM of foot LABS: SCr = 0.66 (Capped at 0.8), WBC = 11.5 Recommendation: Will draw troughs and follow levels. Loading dose: 1.5 grams Maintenance dose: 1.25 grams every 12 hours Trough goal: 15-20 ug/mL
--- NOTE | 2022-02-04 08:45 | NUR ---
Patient admitted with a midline in his right upper arm. dressing dated 01/29. Patient reports catheter [facility]. Sterile dressing change done. cap changed and flushed with 10ml normal saline with good blood return noted. primary care nurse informed of tip location.
--- NOTE | 2022-02-04 08:45 | NUR ---
Patient admitted with a midline in his right upper arm. dressing dated 01/29. Patient reports catheter placed at [facility]. Sterile dressing change done. cap changed and flushed with 10ml normal saline with good blood return noted. primary care nurse informed of tip location.
--- NOTE | 2022-02-04 09:55 | NUR ---
Initial visit attempt; Patient sleeping, Furniture Restorer left card offering Spiritual Care and God's blessings to the patient.
--- NOTE | 2022-02-04 09:55 | NUR ---
Initial visit attempt; Patient sleeping, Corporate Associate Attorney left card offering Spiritual Care and God's blessings to the patient.
--- NOTE | 2022-02-04 11:35 | NUR ---
Amaya met with patients landy Bobo at bedside. Patient currently sleeping and much of the intake information obtained from . Patient was admitted to this facility and subsequently transfered to [facility]. Patient was discharged to [facility] after [facility]. Per Jihan, patient is normally independent with his ADL's and utilizes both a walker and wheelchair to assist with mobility. Patient does not have any home oxygen needs. PCP is and they utilize [facility] and [facility] for prescriptions. Patient does have a DPOA-HC and a copy can be found in his EMR. [facility] requests a palliative care consult. Per MD petra does not feel as if the patients presenting problems warrent a palliative care consult. SNF facility notified.
--- NOTE | 2022-02-04 11:35 | NUR ---
Amaya met with patients landy Bobo at bedside. Patient currently sleeping and much of the intake information obtained from . Patient was [facility] to [facility] facility [facility] Patient was discharged to [facility] after STMV. Per Jihan, patient is normally independent with his ADL's and utilizes both a walker and wheelchair to assist with mobility. Patient does not have any home oxygen needs. PCP is and they utilize [facility] and [facility] for prescriptions. Patient does have a DPOA-HC and a copy can be found in his EMR. [facility] requests a palliative care consult. Per MD petra does not feel as if the patients presenting problems warrent a palliative care consult. SNF facility notified.
[2022-02-04 14:26] LABS: BASO # 0.1 K/mm3 (0.0-0.2); BASO % 0.8 % (0.0-2.0); EOS # 0.1 K/mm3 (0.0-0.7); EOS % 1.1 % (0.0-4.0); GRAN # 7.9 K/mm3 (1.4-6.5); GRAN % 78.8 % (42.2-75.2); LYMPH % 9.5 % (20.0-51.0); MEAN CELL VOLUME 99 fl (80.0-100.0); MEAN CORPUSCULAR HGB CONC 32 g/dl (33.0-37.0); MEAN PLATELET VOLUME 11.4 fl (7.4-10.4); MONO # 0.9 K/mm3 (0.1-0.6); MONO % 9.3 % (1.7-9.3); PLATELET COUNT 60 K/mm3 (130-400); RED BLOOD COUNT 2.58 M/mm3 (4.20-5.60)
[2022-02-04 14:27] LABS: HEMATOCRIT 25.6 % (42.0-52.0); HEMOGLOBIN 8.2 g/dl (13.5-18.0); MEAN CORPUSCULAR HEMOGLOBIN 32 pg (27-31)
--- NOTE | 2022-02-04 17:44 | NUR ---
PT TRANSFERRED TO MEDICAL FLOOR. REPORT GIVEN TO JANE GUTHRIE, ALL QUESTIONS ANSWERED. DRESSING CHANGE COMPLETED PRIOR TO DEPARTURE. PT HAS BEEN AFEBRILE. PAIN MEDICATION PROVIDED PER REQUEST AND ORDERS.
--- NOTE | 2022-02-04 17:46 | NUR ---
PT ADMITTED TO MEDICAL UNIT, REPORT RECEIVED FROM SERVICE CLERK. SHIFT ASSESSMENT COMPLETED. PT RESTING COMFORTABLY IN BED AT THIS TIME. DENIES ANY NEEDS. MEPLEX TO BUTTOCKS CHANGED AT THIS TIME. CALL LIGHT WITHIN REACH. WILL CONTINUE TO MONITOR.
--- NOTE | 2022-02-04 17:46 | NUR ---
PT ADMITTED TO MEDICAL UNIT, REPORT RECEIVED FROM AMPOULE INSPECTOR. SHIFT ASSESSMENT COMPLETED. PT RESTING COMFORTABLY IN BED AT THIS TIME. DENIES ANY NEEDS. MEPLEX TO BUTTOCKS CHANGED AT THIS TIME. CALL LIGHT WITHIN REACH. WILL CONTINUE TO MONITOR.
--- NOTE | 2022-02-04 22:44 | NUR ---
Patient assessed around 2119. Given PRN Roxicodone for pain at that time as requested. Dressings to bilteral feet changed, tolerated well. Mepilex on coccyx is CDI. Indwelling vasquez catheter draining clear, nancy urine via dependent drainage. Patient voices no questions, needs, or concerns at this time. Held Metoprolol for now due to low BP.
[2022-02-05 03:17] VITALS: BP 112/41; PULSE 96; TEMP 99.3
--- NOTE | 2022-02-05 06:07 | NUR ---
Patient given PRN Roxicodone as needed for pain during the night. Continues on IV ABX per orders. Voices no questions, needs, or concerns at this time. In bed with call light within reach.
[2022-02-05 06:59] LABS: BASO # 0.1 K/mm3 (0.0-0.2); BASO % 0.7 % (0.0-2.0); EOS # 0.1 K/mm3 (0.0-0.7); EOS % 1.2 % (0.0-4.0); GRAN # 6.9 K/mm3 (1.4-6.5); GRAN % 75.9 % (42.2-75.2); LYMPH # 1.2 K/mm3 (1.2-3.4); LYMPH % 12.7 % (20.0-51.0); MEAN CELL VOLUME 99 fl (80.0-100.0); MEAN CORPUSCULAR HGB CONC 33 g/dl (33.0-37.0); MONO # 0.8 K/mm3 (0.1-0.6); PLATELET COUNT 58 K/mm3 (130-400); RED BLOOD COUNT 2.55 M/mm3 (4.20-5.60); REDCELL DISTRIBUTION WIDTH-CV 18.8 % (11.5-14.5)
[2022-02-05 07:04] LABS: HEMATOCRIT 25.3 % (42.0-52.0); HEMOGLOBIN 8.3 g/dl (13.5-18.0); MEAN CORPUSCULAR HEMOGLOBIN 33 pg (27-31)
[2022-02-05 07:16] LABS: CREATININE, serum 0.6 mg/dL (0.72-1.25); POTASSIUM 3.6 mmol/L (3.5-4.5)
[2022-02-05 07:36] VITALS: BP 129/49; PULSE 87; TEMP 98.4
--- NOTE | 2022-02-05 10:44 | NUR ---
WOUND CARE, JORDAN, CONTACTED WITH WOUND CARE CONSULT. PER JORDAN, SHE WILL GET BACK TO US REGARDING WHEN THEY CAN VISIT WITH THE PATIENT.
--- NOTE | 2022-02-05 10:44 | NUR ---
WOUND CARE, JORDAN, CONTACTED WITH WOUND CARE CONSULT. PER JORDAN, SHE WILL GET BACK TO US REGARDING WHEN THEY CAN VISIT WITH THE PATIENT.
--- NOTE | 2022-02-05 11:09 | NUR ---
SHIFT ASSESSMENT COMPLETED AND MORNING MEDICATIONS ADMINISTERED PER ORDER. ALERT AND ORIENTED X4. LUNGS WITH CRACKLES TO THE BASES. C/O PAIN 8/10 TO FEET. PRN PAIN MEDICATION GIVEN PER ORDER. PATIENT ASLEEP IN BED AT THIS TIME, NO SIGNS OF PAIN NOTED. DRESSINGS TO FEET CHANGED PER ORDER. WOUND CARE CONSULTED. CONTINUES ON IV ABX, TOLERATING WELL. PER PATIENT'S , PATIENT USUALLY GETS CONSTIPATED WHEN ON NARCOTIC MEDICATION. DR. WALSH UPDATED, AWAITING ORDER FOR STOOL SOFTENER. DENIES OTHER NEEDS AT THIS TIME. CALL LIGHT WITHIN REACH, BED IN LOWEST, LOCKED POSITION.
[2022-02-05 11:26] VITALS: BP 101/47; PULSE 97; TEMP 98.1
[2022-02-05 15:37] VITALS: BP 109/42; PULSE 81; TEMP 98.3
--- NOTE | 2022-02-05 15:47 | NUR ---
RECORDS OBTAINED FROM [facility]ENT [facility] AND PLACED ON PT CHART. DR. WALSH NOTIFIED.
--- NOTE | 2022-02-05 15:47 | NUR ---
RECORDS OBTAINED FROM [facility] AND PLACED ON PT CHART. DR. WALSH NOTIFIED.
--- NOTE | 2022-02-05 16:06 | NUR ---
Parking Lot Spotter met with patient and confirmed plan for [facility]. SW faxed clinical updates to Jose at [facility] and advised discharge may be tomorrow. Discharge Plan: [facility]
--- NOTE | 2022-02-05 18:43 | NUR ---
PATIENT HAS HAD AN UNEVENTFUL DAY. WOUND CARE CONSULTED BUT UNABLE TO SEE THE PATIENT TODAY, STATES THEY WILL F/U WITH HIM AT [facility] WHEN HE DISCHARGES. DR. WALSH NOTIFIED. MORPHINE GIVEN X1 FOR PAIN TO BLE. DENIES ANY FURTHER NEEDS AT THIS TIME. AT BEDSIDE. CALL LIGHT WITHIN REACH.
--- NOTE | 2022-02-05 18:43 | NUR ---
PATIENT HAS HAD AN UNEVENTFUL DAY. WOUND CARE CONSULTED BUT UNABLE TO SEE THE PATIENT TODAY, STATES THEY WILL F/U WITH HIM AT [facility] WHEN HE DISCHARGES. DR. WALSH NOTIFIED. MORPHINE GIVEN X1 FOR PAIN TO BLE. DENIES ANY FURTHER NEEDS AT THIS TIME. AT BEDSIDE. CALL LIGHT WITHIN REACH.
[2022-02-05 19:32] VITALS: BP 114/42; PULSE 82; TEMP 98.8
--- NOTE | 2022-02-05 21:30 | NUR ---
Patient assessed around 2029. Alert and oriented. Complained of pain to left and right foot. Too soon to give Roxicodone but stated he would wait until it is due around 2200, and requested to be woken up if he is sleeping to take medication. Midline to RUE. IV AX per orders. Mepilex to coccyx CDI. No loose stools so far this shift. Dressings to bilateral feet changed, tolerated well. Patient voices no questions, needs, or concerns at this time. In bed with call light within reach. High fall risk precautions in place. Bed alarm on.
[2022-02-06 00:15] VITALS: BP 123/58; PULSE 82; TEMP 99.4
[2022-02-06 05:01] VITALS: BP 127/42; PULSE 84; TEMP 99.2
--- NOTE | 2022-02-06 06:36 | NUR ---
Patient received PRN Roxicodone as requested during the night. Continues on IV ABX per orders. Voices no questions, needs, or concerns at this time. In bed with call light within reach.
[2022-02-06 07:48] VITALS: BP 121/48; PULSE 84; TEMP 98.6
--- NOTE | 2022-02-06 08:00 | NUR ---
Patient is resting in bed, alert and oriented x 4, complains of constant pain, PRN morphine provided. Telemetry in place, NSR. Catheter vasquez in place, nancy output. Continues getting Zosyn per orders. Assessment completed. No other needs at this time. Call light within reach.
[2022-02-06] MEDS ORDERED: ROCEPHIN 2GM VIAL21 IV (09:05)
[2022-02-06] MEDS ORDERED: AMOXICILLIN 8751 TAB PO (09:10)
[2022-02-06] MEDS ORDERED: PROBIOTIC BLEN1 EACH PO (09:11)
--- NOTE | 2022-02-06 11:09 | NUR ---
Reactor Kettle Operator collaborated with Bertin and Jose at [facility]. Patient needs IV antibiotics at discharge and patient does not have a PICC line. Jose advised patient was not on IV antibiotics when he admitted to them from [facility]. Patient cannot have PICC placed until Tuesday, which will delay discharge. ALLAN updated patient and patient's , Pat.
--- NOTE | 2022-02-06 11:09 | NUR ---
Environmental Services Lead collaborated with Bertin and Jose at [facility]. Patient needs IV antibiotics at discharge and patient does not have a PICC line. Jose advised patient was not on IV antibiotics when he admitted to them from [facility]. Patient cannot have PICC placed until Tuesday, which will delay discharge. ALLAN updated patient and patient's , Pat.
--- NOTE | 2022-02-06 11:29 | NUR ---
Jose at [facility] advised they can accept with a midline, which patient has. ALLAN faxed discharge orders. engineering supplies sales at 1300. ALLAN left message for patient's , Pat.
--- NOTE | 2022-02-06 11:29 | NUR ---
Jose at [facility] advised they can accept with a midline, which patient has. ALLAN faxed discharge orders. pot lining supervisor at 1300. ALLAN left message for patient's , Pat.
[2022-02-06 11:36] VITALS: BP 113/47; PULSE 83; TEMP 97.8
[2022-02-06 13:01] VITALS: BP 113/47; PULSE 83; TEMP 97.8
--- NOTE | 2022-02-06 13:30 | NUR ---
Patient left IV was discontinued, Catheter vasquez discontinued per orders. ILDEFONSO midline stayed to continue patient antibiotics at [facility]. Review Scheduling Coordinator of [facility] picked up patient to be transfered. Pt and parts counter representative were accompanied by PCT to the entrance of the hospital.
--- NOTE | 2022-02-06 13:30 | NUR ---
Patient left IV was discontinued, Catheter vasquez discontinued per orders. ILDEFONSO midline stayed to continue patient antibiotics at [facility]. Picker Machine Operator of [facility] picked up patient to be transfered. Pt and data entry representative were accompanied by PCT to the entrance of the hospital.
== END 2022-02-06 13:30 | DRG 178 ==
LOC: COL.ER 21:19 → ICU 23:49 → MEDICAL 02-04 16:58
PROVIDERS: Emergency Medicine; Physician Assistant; Student in an Organized Health Care Education/Training Program; ADMIT Family Medicine
DX: J69.0 Pneumonitis due to inhalation of food and vomit (principal); E44.0 Moderate protein-calorie malnutrition; R78.81 Bacteremia; I10 Essential (primary) hypertension; E78.5 Hyperlipidemia, unspecified; G40.909 Epilepsy, unspecified, not intractable, without status epilepticus; I73.9 Peripheral vascular disease, unspecified; D64.9 Anemia, unspecified; F10.10 Alcohol abuse, uncomplicated; F17.210 Nicotine dependence, cigarettes, uncomplicated; Z20.822 Contact with and (suspected) exposure to COVID-19; D72.829 Elevated white blood cell count, unspecified; I25.10 Atherosclerotic heart disease of native coronary artery without angina pectoris; E11.9 Type 2 diabetes mellitus without complications; D69.6 Thrombocytopenia, unspecified; B95.1 Streptococcus, group B, as the cause of diseases classified elsewhere; L89.152 Pressure ulcer of sacral region, stage 2; R33.9 Retention of urine, unspecified; Z79.82 Long term (current) use of aspirin; Z95.5 Presence of coronary angioplasty implant and graft; Z87.19 Personal history of other diseases of the digestive system; Z68.21 Body mass index [BMI] 21.0-21.9, adult
CPT/HCPCS: A9284; J2270; J2543; J3370; J7050

== ENCOUNTER 2022-06-23 09:34 | Emergency (ER) | payer MEDICARE, MEDICAID ==
[~2022-06-23] VITALS: Ht 180.3 cm; Wt 81.8 kg
[~2022-06-23 09:34] MED LIST changes: +DORYX100 PO; +NICODERM C21 MG/PATC TD; +PROBIOTIC BLEN1 EACH PO; +ROCEPHIN 2GM VIAL21 IV
[2022-06-23 09:44] VITALS: TEMP 98.2
[2022-06-23 10:42] LABS: BASO # 0.1 K/mm3 (0.0-0.2); BASO % 1.6 % (0.0-2.0); EOS # 0.2 K/mm3 (0.0-0.7); EOS % 4.3 % (0.0-4.0); GRAN # 3.7 K/mm3 (1.4-6.5); GRAN % 72.3 % (42.2-75.2); LYMPH # 0.8 K/mm3 (1.2-3.4); LYMPH % 14.8 % (20.0-51.0); MEAN CELL VOLUME 93 fl (80.0-100.0); MEAN CORPUSCULAR HGB CONC 33 g/dl (33.0-37.0); MEAN PLATELET VOLUME 10.6 fl (7.4-10.4); MONO # 0.3 K/mm3 (0.1-0.6); MONO % 6.4 % (1.7-9.3); RED BLOOD COUNT 2.98 M/mm3 (4.20-5.60); REDCELL DISTRIBUTION WIDTH-CV 17.6 % (11.5-14.5)
[2022-06-23 10:59] LABS: ALBUMIN 2.6 gm/dL (3.4-4.8); BILIRUBIN,TOTAL 3.1 mg/dL (0.2-1.2); C-REACTIVE PROTEIN 2.04 mg/dL (0.00-0.50); CALCIUM 8.3 mg/dL (8.4-10.2); CREATININE, serum 0.71 mg/dL (0.72-1.25); POTASSIUM 4.8 mmol/L (3.5-4.5); TOTAL PROTEIN 6.5 gm/dL (6.2-8.1)
[2022-06-23 11:12] LABS: HEMATOCRIT 27.7 % (42.0-52.0); HEMOGLOBIN 9.2 g/dl (13.5-18.0); MEAN CORPUSCULAR HEMOGLOBIN 31 pg (27-31)
[2022-06-23 11:13] LABS: PLATELET COUNT 49 K/mm3 (130-400)
[2022-06-23 11:25] LABS: COLLECTION METHOD CLEAN CATCH
[2022-06-23 11:38] LABS: MUCOUS Present (NOT PRESENT); SQUAMOUS EPITHELIAL 0-2 /hpf (0-10); URINE BACTERIA Rare /hpf (NONE SEEN); URINE RBC 0-2 /hpf (0-2)
[2022-06-23 11:42] LABS: PH 6.5 (5.0-8.5); URINE APPEARANCE Clear (CLEAR/HAZY); URINE BLOOD Negative (NEGATIVE); URINE COLOR Yellow (YELLOW); URINE GLUCOSE Negative (NEGATIVE); URINE KETONE Negative (NEGATIVE); URINE NITRATE Negative (NEGATIVE); URINE PROTEIN(semi-quant) Negative (NEGATIVE); URINE UROBILINOGEN >=8.0 E.U/dL (0.2-1.0)
[2022-06-23 13:33] LABS: TRICYCLIC ANTIDEPRESS URINE NEGATIVE
[2022-06-23 14:55] VITALS: BP 158/74; PULSE 70
== END 2022-06-23 15:14 | disposition short-term general hospital (02) ==
LOC: COL.ER 09:34
PROVIDERS: Nurse Practitioner
DX: R41.0 Disorientation, unspecified (principal); K70.30 Alcoholic cirrhosis of liver without ascites; M86.9 Osteomyelitis, unspecified; G93.40 Encephalopathy, unspecified; F17.200 Nicotine dependence, unspecified, uncomplicated
CPT/HCPCS: J3370; J7050

== ENCOUNTER 2023-05-14 14:52 | Inpatient (IN) | payer MEDICARE, MEDICAID ==
[~2023-05-14] VITALS: Ht 165.1 cm; Wt 75.2 kg
[~2023-05-14 14:52] MED LIST changes: +BUSPAR DIVIDOSE15 MG PO; +BUSPAR10 MG PO; +ENULOSE10 GM/15 M PO; +NEURONTIN300 MG/CAP PO; +REMERON45 MG PO; +ULTRAM 50MG TAB50 MG PO
[2023-05-14] MEDS ORDERED: NS 1,000 ML IV ONE (15:15)
[2023-05-14 15:42] LABS: ARTERIAL BLD GAS O2 SATURATION 95.7 % (92-100); ARTERIAL BLD GAS TCO2 CT 25.8; ARTERIAL BLOOD GAS BASE EXCESS 1.2 (-2-2); ARTERIAL BLOOD GAS HCO3 24.7 meq/L (22-26); ARTERIAL BLOOD GAS PCO2 35.2 mmHg (35-45); ARTERIAL BLOOD GAS PO2 74.5 mmHg (80-100); ARTERIAL BLOOD GAS pH 7.46 (7.35-7.45)
[2023-05-14 15:58] LABS: INR 1.8 (0.8-3.0); PROTHROMBIN TIME 19.5 SECONDS (9.7-12.8)
[2023-05-14 15:59] LABS: ALANINE AMINOTRANSFERASE 15 U/L (0-55); ALBUMIN 3.1 gm/dL (3.4-4.8); ALKALINE PHOSPHATASE 137 U/L (40-150); ANION GAP 14 mmol/L (7-16); AST,SGOT 33 U/L (5-34); BILIRUBIN,TOTAL 4.8 mg/dL (0.2-1.2); BLOOD UREA NITROGEN 12 mg/dL (8-26); CALCIUM 8.6 mg/dL (8.4-10.2); CARBON DIOXIDE 20 mmol/L (23-31); CHLORIDE 109 mmol/L (98-107); CREATINE KINASE 29 U/L (30-200); CREATININE, serum 0.82 mg/dL (0.72-1.25); GLUCOSE 99 mg/dL (70-99); LIPASE 21 U/L (8-78); POTASSIUM 4.1 mmol/L (3.5-4.5); SODIUM 143 mmol/L (136-145); TOTAL PROTEIN 6.6 gm/dL (6.2-8.1)
[2023-05-14 16:08] LABS: BASO # 0.1 K/mm3 (0.0-0.2); EOS % 0.5 % (0.0-4.0); GRAN % 82.8 % (42.2-75.2); HEMOGLOBIN 11.3 g/dl (13.5-18.0); LYMPH # 0.6 K/mm3 (1.2-3.4); LYMPH % 9.5 % (20.0-51.0); MEAN CELL VOLUME 97 fl (80.0-100.0); MEAN CORPUSCULAR HEMOGLOBIN 32 pg (27-31); MEAN CORPUSCULAR HGB CONC 33 g/dl (33.0-37.0); MEAN PLATELET VOLUME 11.4 fl (7.4-10.4); MONO # 0.4 K/mm3 (0.1-0.6); MONO % 5.9 % (1.7-9.3); RED BLOOD COUNT 3.53 M/mm3 (4.20-5.60); REDCELL DISTRIBUTION WIDTH-CV 17.5 % (11.5-14.5)
[2023-05-14 16:09] LABS: TROPONIN-I < 0.010 ng/mL (0.00-0.033)
[2023-05-14 16:17] LABS: HEMATOCRIT 34.1 % (42.0-52.0); PLATELET COUNT 31 K/mm3 (130-400)
[2023-05-14 16:44] LABS: LACTIC ACID 2.7 mmol/L (0.5-2.0)
[2023-05-14 17:00] LABS: COLLECTION METHOD CLEAN CATCH
[2023-05-14 17:28] LABS: URINE APPEARANCE Clear (CLEAR/HAZY); URINE COLOR Amber (YELLOW)
[2023-05-14 17:29] LABS: URINE GLUCOSE TRACE (NEGATIVE); URINE KETONE TRACE (NEGATIVE); URINE NITRATE Negative (NEGATIVE); URINE PROTEIN(semi-quant) Negative (NEGATIVE); URINE UROBILINOGEN >=8.0 E.U/dL (0.2-1.0)
[2023-05-14 17:30] LABS: SQUAMOUS EPITHELIAL 0-2 /hpf (0-10); URINE BLOOD TRACE-INTACT (NEGATIVE)
[2023-05-14] MEDS ORDERED: Lactulose Oral Soln 10 GM/15 ML CUP PO ONE ×2 (18:15→18:45)
--- NOTE | 2023-05-14 19:23 | NUR ---
REPORT RECIEVED FROM ELISA HAGAN RN.
[2023-05-14 19:45] VITALS: BP_SYST 162
--- NOTE | 2023-05-14 19:45 | NUR ---
MALE PATIENT ARRIVED TO ROOM #313 FROM ER VIA STRETCHER. PATIENT ASSISTED TO BED WITH STAND PIVOT WITH PRIMARY NURSE. PATIENT NOTED TO HAVE SMALL BOWEL MOVEMENT. WHITE PAD AND JUSTIN CARE PROVIDED. FOLY CATH INTACT AND DRAINING. INT TO RIGHT FOREARM INTACT. TELEMETRY INTACT. PATIENT VERBALIZED UNDERSTANDING OF CALL LIGHT AND BED CONTROLS. BED IN LOW POSITION WTIH WHEELS LOCKED WITH RAILS UP X3 AND CALL LIGHT WITHIN REACH. BED ALARM ON.
[2023-05-14 19:52] VITALS: BP 162/77; PULSE 69; TEMP 98.3
[2023-05-14] MEDS ORDERED: Lactulose Oral Soln 10 GM/15 ML CUP PO SCH (21:00)
[2023-05-14] MEDS ORDERED: Metoprolol Tartrate 25 MG TAB PO SCH (21:00)
[2023-05-14] MEDS ORDERED: Gabapentin 300 MG CAP PO SCH (21:00)
[2023-05-14 21:24] LABS: ACETAMINOPHEN < 7.0 ug/mL (10-30)
[2023-05-14 21:27] LABS: ALCOHOL(ethanol),MEDICAL < 10 mg/dL (0-10); SALICYLATE < 5.0 mg/dL (15.0-30.0)
--- NOTE | 2023-05-14 21:36 | NUR ---
PATIENT ALERT AND ORIENTED IN BED WITH TV OFF WITH NO FAMILY PRESENT WITH NO ACUTE DISTRESS NOTED. TOÑITO SR CALLED TO CHRISTIANE GABAPENTIN ORDER. TOÑITO STATED TO GIVE MEDICATION. MEDICATION ADMINISTRATION COMPLETED AT THIS TIME. PATEINT TOLERATED WELL. PATIENT DENIES ANY NEEDS AT THIS TIME. HYLTON CATH INTACT AND DRAINING CLEAR PEACH URINE. BED IN LOW POSITION WITH WHEELS LOCKED WITH RAILS UP X3 AND CALL LIGHT WITHIN REACH. BED ALARM ON.
[2023-05-15] VITALS (13 sets, daily range): BP systolic 118–154; BP diastolic 46–73; PULSE 61–75; TEMP 98–98.7
[2023-05-15] MEDS ORDERED: Gabapentin 300 MG CAP PO SCH (07:00)
[2023-05-15] MEDS ORDERED: Furosemide 40 MG TAB PO SCH (09:00)
[2023-05-15 09:04] LABS: BASO # 0.1 K/mm3 (0.0-0.2); BASO % 1.5 % (0.0-2.0); EOS # 0.1 K/mm3 (0.0-0.7); EOS % 2.7 % (0.0-4.0); GRAN # 2.8 K/mm3 (1.4-6.5); GRAN % 69.7 % (42.2-75.2); LYMPH # 0.7 K/mm3 (1.2-3.4); LYMPH % 17.3 % (20.0-51.0); MEAN CELL VOLUME 95 fl (80.0-100.0); MEAN CORPUSCULAR HGB CONC 34 g/dl (33.0-37.0); MEAN PLATELET VOLUME 12.7 fl (7.4-10.4); MONO # 0.4 K/mm3 (0.1-0.6); MONO % 8.6 % (1.7-9.3); RED BLOOD COUNT 2.92 M/mm3 (4.20-5.60); REDCELL DISTRIBUTION WIDTH-CV 17.4 % (11.5-14.5)
[2023-05-15 09:07] LABS: HEMATOCRIT 27.8 % (42.0-52.0); HEMOGLOBIN 9.5 g/dl (13.5-18.0); MEAN CORPUSCULAR HEMOGLOBIN 33 pg (27-31)
[2023-05-15 09:08] LABS: PLATELET COUNT 27 K/mm3 (130-400)
--- NOTE | 2023-05-15 09:14 | NUR ---
PT ALERT AND ORIENTED X2 FORGETFUL OF THE DATE AND YEAR AND IS ABLE TO RECALL WE ARE IN [facility] BUT SAID WE WERE AT [facility]. VSS, ON TELE NSR. EVEN UNLABORED RESPR. SHIFT ASSESSMENT COMPLETE, MEDICATED PER EMAR. C/O GENERALIZED PAIN. SAYS HE IS NOT CURRENTLY DRINKING ONLY DRINKS WATER. MILD TREMORS NOTED BUT ABLE TO HOLD MED CUP TO TAKE MEDICATIONS. PRESENTS WITH UNKEMPT APPERANCE, BED BATH GIVEN, HE IS 1 PERSON SBY AND TOLERATES OK, WAS UP WITH PT. DENIES NEED FOR ANYTHING FURTHER. CALL LIGTH WITHIN REACH, CHAIR ALARM ENGAGED.
[2023-05-15 09:29] LABS: CALCIUM 8.1 mg/dL (8.4-10.2); CREATININE, serum 0.7 mg/dL (0.72-1.25); POTASSIUM 3.8 mmol/L (3.5-4.5)
--- NOTE | 2023-05-15 12:00 | NUR ---
UPON TWO PCT GIVING PT JUSTIN CARE FOR STOOL INCONTINENCE PT FOUND TO BE BLEEDING SCANT AMOUNT FROM JUSTIN AREA, I WAS NOTIFIED AND AFTER ASSESSING JUSTIN AREA PT HAS A SMALL ABRASION TO INNER LEFT FOLD OF GROIN, UNSURE IF HE WAS SCRATCHING THERE AND KNICKED HIS SKIN. CLEANED AND BARRIER CREAM APPLIED.
[2023-05-15 14:19] LABS: CLOSTRIDIUM DIFF A/B NEG
--- NOTE | 2023-05-15 20:00 | NUR ---
PATIENT IS A&O X2. ORIENTED TO PERSON AND PLACE HOWEVER DOESN'T KNOW THE DATE AND IS OFTEN FORGETFUL. VSS ON TELE. DENIES COMPLAINTS. PATIENT DOES REPORT HE NEEDS TO SIT ON THE BEDPAN. PATIENT WAS ALREADY INCONTINENT OF A LARGE AMOUNTS OF LOOSE, YELLOW STOOL AND REQUIRED A COMPLETE BED CHANGE. PATIENT ON LACTULOSE. HS MEDS GIVEN. HYLTON TO DD WITH MOD AMOUNTS OF URINE NOTED. RIGHT FORARM IV TO INT. TOLERATING SOFT AND BITE SIZE FOOD. HIGH RISK FOR ASPIRATION AND FALLS. PT/OT/ST ALL CONSULTED. HEAD TO TOE ASSESSMENT COMPLETE. SCD'S TO BLE. CALL LIGHT IN REACH. BED ALARM ON.
[2023-05-16] VITALS (12 sets, daily range): BP systolic 106–149; BP diastolic 31–72; PULSE 57–75; TEMP 98.2–99.1
[2023-05-16 07:18] LABS: BASO # 0.1 K/mm3 (0.0-0.2); BASO % 0.9 % (0.0-2.0); EOS # 0.2 K/mm3 (0.0-0.7); GRAN % 70.2 % (42.2-75.2); MEAN CELL VOLUME 94 fl (80.0-100.0); MEAN CORPUSCULAR HGB CONC 35 g/dl (33.0-37.0); MEAN PLATELET VOLUME 11.9 fl (7.4-10.4); MONO # 0.4 K/mm3 (0.1-0.6); MONO % 7.7 % (1.7-9.3); RED BLOOD COUNT 3.03 M/mm3 (4.20-5.60); REDCELL DISTRIBUTION WIDTH-CV 17.2 % (11.5-14.5)
[2023-05-16 07:21] LABS: HEMATOCRIT 28.5 % (42.0-52.0); HEMOGLOBIN 9.9 g/dl (13.5-18.0); MEAN CORPUSCULAR HEMOGLOBIN 33 pg (27-31)
[2023-05-16 07:22] LABS: PLATELET COUNT 31 K/mm3 (130-400)
[2023-05-16 07:39] LABS: ALBUMIN 2.5 gm/dL (3.4-4.8); BILIRUBIN,TOTAL 4.4 mg/dL (0.2-1.2); CREATININE, serum 0.8 mg/dL (0.72-1.25); MAGNESIUM 1.5 mg/dL (1.6-2.6); POTASSIUM 3.6 mmol/L (3.5-4.5); TOTAL PROTEIN 5.4 gm/dL (6.2-8.1)
--- NOTE | 2023-05-16 07:48 | NUR ---
Critical platelet value called to Dr. Baltazar. No new orders rec'd.
--- NOTE | 2023-05-16 10:42 | NUR ---
Assessment completed this earlier this morning. A/O x4 amd is able to request BSC for bowel movements. Pt has been sitting up in chair and tolerating well. Pt ambulated in hallway with Physical Therapy.
[2023-05-16] MEDS ORDERED: traZODone 50 MG TAB PO PRN (11:30)
--- NOTE | 2023-05-16 15:00 | NUR ---
insulation worker furnace installer met with pt and , Yenni [phone] ([phone] to complete discharge planning. Pt reports he lives with his in [place]. He sees Dr. Salas and obtains medications from [facility] with some difficulties. SW went over [facility] and getting coupons/samples from their provider. , Yenni reports she is aware and uses all these options. Pt is independent with ADLS and has a FWW for DME. Pt reports he has used [facility] in the past. SW went over the reccomendation of Home with HH vs SNF. After deliberation with both parties, they decided on [facility] as they have been there and Pat currently works there. ALLAN advised she will send an email referral to Jose. ALLAN heard back from [facility] and they report to be a tenative acceptance. Pt needs one more midnight. Discharge Plan: SNF
--- NOTE | 2023-05-16 18:43 | NUR ---
Pt sat up in chair this afternoon. More alert and oriented today- conversation appropriate. Able to communicate bathroom needs and walk to the bathroom x1 assist. Denied pain or needs.
--- NOTE | 2023-05-16 20:28 | NUR ---
PATIENT RESTING IN BED WATCHING TV WITH NO FAMILY PRESENT WITH NO ACUTE DISTRESS NOTED. PATIENT ON ROOM AIR. ASSESSMENT AND MEDICATION ADMINISTRATION COMPLETED AT THIS TIME. PATIENT TOLERATED WELL. PATIENT DENIES ANY NEEDS AT THIS TIME. BED IN LOW POSITION WITH WHEELS LOCKED WITH RAILS UP X3 AND CALL LIGHT WITHIN REACH.
[2023-05-17] VITALS: BP_SYST 106
[2023-05-17 03:18] VITALS: BP 140/44; PULSE 64; TEMP 99
[2023-05-17 04:00] VITALS: BP_SYST 140
[2023-05-17 07:37] LABS: BASO # 0.1 K/mm3 (0.0-0.2); BASO % 1.4 % (0.0-2.0); EOS # 0.1 K/mm3 (0.0-0.7); EOS % 3.2 % (0.0-4.0); GRAN % 66.6 % (42.2-75.2); LYMPH # 0.9 K/mm3 (1.2-3.4); LYMPH % 19.8 % (20.0-51.0); MEAN CELL VOLUME 93 fl (80.0-100.0); MEAN CORPUSCULAR HEMOGLOBIN 32 pg (27-31); MEAN CORPUSCULAR HGB CONC 35 g/dl (33.0-37.0); MEAN PLATELET VOLUME 12.3 fl (7.4-10.4); MONO # 0.4 K/mm3 (0.1-0.6); MONO % 8.8 % (1.7-9.3); RED BLOOD COUNT 3.09 M/mm3 (4.20-5.60); REDCELL DISTRIBUTION WIDTH-CV 17.2 % (11.5-14.5)
[2023-05-17 07:38] LABS: HEMATOCRIT 28.7 % (42.0-52.0)
[2023-05-17 07:39] LABS: PLATELET COUNT 28 K/mm3 (130-400)
[2023-05-17 07:47] VITALS: BP 116/66; PULSE 67; TEMP 98.2
[2023-05-17 07:56] LABS: ALBUMIN 2.5 gm/dL (3.4-4.8); BILIRUBIN,TOTAL 4.2 mg/dL (0.2-1.2); CALCIUM 8.2 mg/dL (8.4-10.2); CREATININE, serum 0.77 mg/dL (0.72-1.25); POTASSIUM 3.5 mmol/L (3.5-4.5); TOTAL PROTEIN 5.4 gm/dL (6.2-8.1)
--- NOTE | 2023-05-17 08:16 | NUR ---
Dr. Baltazar notified of Magnesium, Potassium and Platlet results.
[2023-05-17] MEDS ORDERED: Magnesium Sulfate 2 GM/50 ML IV SOLN IV SCH (08:30)
[2023-05-17 09:21] VITALS: BP_SYST 116
[2023-05-17] MEDS ORDERED: MAG-OX 400400 MG/TAB PO (10:00)
[2023-05-17] MEDS ORDERED: K-DUR20 MEQ PO (10:05)
--- NOTE | 2023-05-17 10:59 | NUR ---
Initial visit; Patient friendly and talkative about where he lives which he describes as a roof over his head. His is going to try to pick him up and take him to [facility] today for Rehabilitation. Patient thanked Supervisor Wet Room for stopping and wishing him well and offering God's blessings.
[2023-05-17 11:26] VITALS: BP 118/45; PULSE 69; TEMP 98.3
--- NOTE | 2023-05-17 11:49 | NUR ---
Assessment completed this morning. Pt dressed and sitting up in chair since breakfast this morning. A/O x4. Denies pain. Plan for discharge to [facility].
--- NOTE | 2023-05-17 11:53 | NUR ---
grocery worker was informed by Jose at [facility] that they can accept and transport patient at 1pm. ALLAN emailed discharge orders. ALLAN informed pt's , Pat and she was agreeable. Discharge Plan: [facility] SNF 1pm
--- NOTE | 2023-05-17 12:27 | NUR ---
Bin Operator met with patient to present and review IM. Patient verbalized understanding and provided his signature. SW placed form in chart and provided copy to patient.
--- NOTE | 2023-05-17 13:25 | NUR ---
Pt escorted to private vehicle via by [facility] staff and discharged to [facility]. INT d/c'd with cath tip intact. Tele d/c'd.
--- NOTE | 2023-05-17 14:51 | NUR ---
Report called to [facility] and [facility].
== END 2023-05-17 13:25 | DRG 433 ==
LOC: COL.ER 14:52 → MEDICAL 19:07
PROVIDERS: Family Medicine; Internal Medicine; Internal Medicine Gastroenterology; Nurse Practitioner Family; Nurse Practitioner Primary Care; Physician Assistant; ADMIT Internal Medicine
DX: K70.30 Alcoholic cirrhosis of liver without ascites (principal); E87.20 Acidosis, unspecified; K86.1 Other chronic pancreatitis; K76.82 Hepatic encephalopathy; E87.6 Hypokalemia; E83.42 Hypomagnesemia; D64.9 Anemia, unspecified; D69.6 Thrombocytopenia, unspecified; F32.A Depression, unspecified; F41.9 Anxiety disorder, unspecified; I10 Essential (primary) hypertension; G47.00 Insomnia, unspecified; F17.210 Nicotine dependence, cigarettes, uncomplicated; F10.10 Alcohol abuse, uncomplicated; E78.5 Hyperlipidemia, unspecified; R16.1 Splenomegaly, not elsewhere classified; I25.10 Atherosclerotic heart disease of native coronary artery without angina pectoris; G40.909 Epilepsy, unspecified, not intractable, without status epilepticus; E88.09 Other disorders of plasma-protein metabolism, not elsewhere classified; M62.84 Sarcopenia; I73.9 Peripheral vascular disease, unspecified; Z95.5 Presence of coronary angioplasty implant and graft; Z89.422 Acquired absence of other left toe(s); Z89.431 Acquired absence of right foot; Z79.82 Long term (current) use of aspirin; Z79.899 Other long term (current) drug therapy; Z23 Encounter for immunization
CPT/HCPCS: J3475; J7030

== ENCOUNTER 2023-07-05 10:35 | Observation (INO) | payer MEDICARE, MEDICAID ==
[~2023-07-05] VITALS: Ht 180.3 cm; Wt 80.1 kg
[2023-07-05] VITALS (7 sets, daily range): BP systolic 126–150; BP diastolic 67–74; PULSE 46–61; TEMP 97.5–98.1
[~2023-07-05 10:35] MED LIST changes: +MAG-OX 400400 MG/TAB PO
[2023-07-05 12:30] LABS: BASO # 0.1 K/mm3 (0.0-0.2); BASO % 1.3 % (0.0-2.0); EOS # 0.1 K/mm3 (0.0-0.7); EOS % 1.8 % (0.0-4.0); GRAN % 77.2 % (42.2-75.2); HEMOGLOBIN 10.4 g/dl (13.5-18.0); LYMPH # 0.5 K/mm3 (1.2-3.4); LYMPH % 11.9 % (20.0-51.0); MEAN CELL VOLUME 95 fl (80.0-100.0); MEAN CORPUSCULAR HEMOGLOBIN 32 pg (27-31); MEAN CORPUSCULAR HGB CONC 34 g/dl (33.0-37.0); MEAN PLATELET VOLUME 12.3 fl (7.4-10.4); MONO # 0.3 K/mm3 (0.1-0.6); MONO % 7.5 % (1.7-9.3); RED BLOOD COUNT 3.25 M/mm3 (4.20-5.60); REDCELL DISTRIBUTION WIDTH-CV 15.8 % (11.5-14.5)
[2023-07-05 12:36] LABS: INR 1.8 (0.8-3.0); PROTHROMBIN TIME 19.3 SECONDS (9.7-12.8)
[2023-07-05 12:46] LABS: ALBUMIN 2.6 gm/dL (3.4-4.8); BILIRUBIN,TOTAL 3.5 mg/dL (0.2-1.2); CALCIUM 8.2 mg/dL (8.4-10.2); CREATININE, serum 0.82 mg/dL (0.72-1.25); POTASSIUM 4.2 mmol/L (3.5-4.5); TOTAL PROTEIN 5.6 gm/dL (6.2-8.1)
[2023-07-05 12:47] LABS: PLATELET COUNT 29 K/mm3 (130-400)
[2023-07-05 12:50] LABS: CREATINE KINASE 147 U/L (30-200); LACTATE DEHYDROGENASE 281 U/L (125-220); LIPASE 21 U/L (8-78)
[2023-07-05 14:43] LABS: COLLECTION METHOD CATHETER
[2023-07-05 14:52] LABS: PH 8.5 (5.0-8.5); URINE APPEARANCE CLEAR (CLEAR/HAZY); URINE BLOOD NEGATIVE (NEGATIVE); URINE COLOR Dark Yellow (YELLOW); URINE GLUCOSE NEGATIVE (NEGATIVE); URINE KETONE NEGATIVE (NEGATIVE); URINE NITRATE NEGATIVE (NEGATIVE); URINE PROTEIN(semi-quant) TRACE (NEGATIVE)
[2023-07-05] MEDS ORDERED: ULTRAM 50MG TAB50 MG PO (15:08)
[2023-07-05] MEDS ORDERED: XIFAXAN550 MG PO (15:09)
[2023-07-05] MEDS ORDERED: Ondansetron 4 MG/2 ML VIAL IV PRN (16:00)
[2023-07-05] MEDS ORDERED: Acetaminophen 325 MG TAB PO PRN (16:00)
[2023-07-05] MEDS ORDERED: Lactulose Oral Soln 10 GM/15 ML CUP PO ONE ×2 (16:15→18:30)
[2023-07-05] MEDS ORDERED: Furosemide 40 MG/4 ML VIAL IV ONE (16:15)
[2023-07-05] MEDS ORDERED: Nicotine 14 MG DAILY PATCH TD PRN (16:30)
--- NOTE | 2023-07-05 17:00 | NUR ---
PATIENT ARRIVED TO THE MEDICAL FLOOR FROM ED AT APPROX 1700. PATIENT IS ALERT. BUT NOT ORIENTED.
--- NOTE | 2023-07-05 17:18 | NUR ---
THIS NURSE CALLED IN ATTEMPT TO GET AN ACCURATE MEDICATION LIST FOR MED REC. , BETO SAYS SHE WILL BE IN AROUND 1800.
[2023-07-05] MEDS ORDERED: traZODone 50 MG TAB PO PRN (17:30)
[2023-07-05] MEDS ORDERED: traMADol 50 MG TAB PO PRN (17:30)
--- NOTE | 2023-07-05 18:40 | NUR ---
PATIENT SEEMS ALERT, BUT IS INCREASING IN AGITATION. AT BEDSIDE. PATIENT IS SITTING UP IN BED EATING. PATIENT DENIES NEEDS OR CONCERNS AT THIS TIME.
--- NOTE | 2023-07-05 20:28 | NUR ---
Patient assessed at this time. Alert and oriented to self. Denies having pain and discomfort. Peripheral INT to right hand. Denies having SOB and dyspnea. LS CTA. On oxygen at 2 L/min via NC. HRR. BSAx4. Has had Lactulose, no BM so far. Has indwelling vasquez catheter, draining clear yellow urine via dependent drainage. Voices no questions, needs, or concerns at this time. In bed with call light within reach. High fall risk precautions in place. Bed alarm on.
[2023-07-05] MEDS ORDERED: rifAXIMin 550 MG TAB PO SCH (21:00)
[2023-07-05] MEDS ORDERED: busPIRone 7.5 MG TABLET PO SCH (21:00)
[2023-07-05] MEDS ORDERED: Gabapentin 300 MG CAP PO SCH (21:00)
[2023-07-05] MEDS ORDERED: Lactulose Oral Soln 10 GM/15 ML CUP PO SCH (21:00)
[2023-07-05] MEDS ORDERED: Mirtazapine 15 MG TAB PO SCH (21:00)
[2023-07-05] MEDS ORDERED: Metoprolol Tartrate 25 MG TAB PO SCH (21:00)
[2023-07-06] VITALS (12 sets, daily range): BP systolic 127–159; BP diastolic 58–81; PULSE 53–60; TEMP 97.2–98.2
--- NOTE | 2023-07-06 05:29 | NUR ---
Patient has been incontinent of loose stool this shift. Continues to be oriented to self only. Voices no questions, needs, or concerns at this time. In bed with call light within reach. High fall risk precautions in place. Bed alarm on.
[2023-07-06] MEDS ORDERED: Nicotine 21 MG DAILY PATCH TD SCH (09:30)
[2023-07-06] MEDS ORDERED: Furosemide 40 MG TAB PO SCH (09:33)
--- NOTE | 2023-07-06 10:40 | NUR ---
Initial visit; Patient introduced herself to patient who kindly declined Spiritual Care. Bakery Demonstrator wished patient well.
--- NOTE | 2023-07-06 11:33 | NUR ---
supervisor machine workers met with patient at bedside. Patient oriented x 3, able to verify demographic information. Patient confirms that he lives at home with his Yenni ([phone]) in [place]. Patient sees Dr. Salas as his PCP and uses [facility] as his pharmacy. Patient states is DPOA. Patient denies using any DME at home, has had home health services in the past and SNF in past. Patient denies any in home services at this time. Plan at this time is for patient to return home with his when medically stable. PT/OT evaluations pending. Discharge Plan: TBD pending PT/OT evaluations
[2023-07-06] MEDS ORDERED: Lactulose Oral Soln 10 GM/15 ML CUP PO SCH (13:00)
--- NOTE | 2023-07-06 13:08 | NUR ---
Met with patient and at bedside. verified information provided by patient earlier. reports patient has a FWW and wheelchair at home and uses as needed. Plan remains to return home at this time. Discharge Plan: Home
[2023-07-06] MEDS ORDERED: Furosemide 40 MG/4 ML VIAL IV ONE (19:45)
[2023-07-06] MEDS ORDERED: Magnesium Oxide 400 MG TAB PO SCH (19:46)
[2023-07-07 03:21] VITALS: BP 145/75; PULSE 67; TEMP 98.5
[2023-07-07 04:59] VITALS: BP_SYST 145
[2023-07-07 07:20] VITALS: BP 133/58; PULSE 67; TEMP 98.7
[2023-07-07 07:28] LABS: BASO # 0.1 K/mm3 (0.0-0.2); BASO % 0.9 % (0.0-2.0); EOS # 0.2 K/mm3 (0.0-0.7); EOS % 2.9 % (0.0-4.0); GRAN % 70.6 % (42.2-75.2); HEMOGLOBIN 11.1 g/dl (13.5-18.0); LYMPH % 18.4 % (20.0-51.0); MEAN CELL VOLUME 96 fl (80.0-100.0); MEAN CORPUSCULAR HEMOGLOBIN 32 pg (27-31); MEAN CORPUSCULAR HGB CONC 33 g/dl (33.0-37.0); MEAN PLATELET VOLUME 12.9 fl (7.4-10.4); MONO # 0.4 K/mm3 (0.1-0.6); MONO % 6.8 % (1.7-9.3); RED BLOOD COUNT 3.52 M/mm3 (4.20-5.60); REDCELL DISTRIBUTION WIDTH-CV 16.3 % (11.5-14.5)
[2023-07-07 07:34] LABS: HEMATOCRIT 33.6 % (42.0-52.0)
[2023-07-07 07:35] LABS: PLATELET COUNT 30 K/mm3 (130-400)
[2023-07-07 07:48] LABS: CALCIUM 8.4 mg/dL (8.4-10.2); CREATININE, serum 0.92 mg/dL (0.72-1.25); POTASSIUM 3.6 mmol/L (3.5-4.5)
--- NOTE | 2023-07-07 08:04 | NUR ---
MD MADE AWARE OF PATIENT OBS TIME CLOSE TO 48HRS, AND CURRENT PLATELET COUNT OF 30. NO NEW ORDERS RECIEVED AT THIS TIME
--- NOTE | 2023-07-07 08:33 | NUR ---
PATIENT AWAKE, ALERT SITTING UP IN BED. PATIENT IS ARGUMENTIVE WITH RN FOR PLACING BED ALARM ON. HE IS CURRENTLY SITTING EDGE OF BEDM EATING BREAKFAST. PATINET DENIES ANY NEEDS , JUST KEEPS TELLING THIS RN THAT HE IS DISCHARGING TODAY. CALL LIGHT WITHIN REACH, BED ALARM ON.
--- NOTE | 2023-07-07 09:05 | NUR ---
KULWINDER SUSTAINED AN O2 SATURATION > 93% OVER 20 MINUTES. MD CUELLAR
[2023-07-07 11:18] VITALS: BP 147/76; PULSE 68; TEMP 98.3
--- NOTE | 2023-07-07 12:00 | NUR ---
PATIENT GIVEN DISCHARGE INSTRUCTIOSN AND EDUCATION. PATIENT LEFT INSTABLE CONDITION WIHT HIS
[2023-07-07 13:34] VITALS: BP_SYST 147
[2023-07-07] MEDS ORDERED: XIFAXAN550 MG PO (14:06)
[2023-07-07] MEDS ORDERED: LACTULOSE10 GM/153 PO (14:20)
--- NOTE | 2023-07-07 15:02 | NUR ---
Survey Operations Director was notified that patient will require one liter of oxygen at discharge. ALLAN met with patient and his , Yenni to set up home oxygen. Patient selected [place] [facility] after ALLAN reviewed home oxygen providers. ALLAN faxed referral and order for oxygen to [facility]. Patient's , Yenni picked up portable tanks for discharge. Discharge Plan; Home, new oxygen set up
== END 2023-07-07 13:00 | disposition home or self-care (01) ==
LOC: COL.ER 10:35 → MEDICAL 15:57
PROVIDERS: Physician Assistant; ADMIT Internal Medicine
DX: K76.82 Hepatic encephalopathy (principal); E87.70 Fluid overload, unspecified; J96.01 Acute respiratory failure with hypoxia; D69.6 Thrombocytopenia, unspecified; D64.9 Anemia, unspecified; I25.10 Atherosclerotic heart disease of native coronary artery without angina pectoris; I10 Essential (primary) hypertension; Z79.82 Long term (current) use of aspirin; Z79.899 Other long term (current) drug therapy; K21.9 Gastro-esophageal reflux disease without esophagitis; R00.1 Bradycardia, unspecified; Z89.412 Acquired absence of left great toe; Z95.5 Presence of coronary angioplasty implant and graft
CPT/HCPCS: A4314; G0378; J1940

== ENCOUNTER 2023-10-21 18:05 | Emergency (ER) | payer MEDICARE, MEDICAID ==
[~2023-10-21] VITALS: Ht 180.3 cm; Wt 77.3 kg
[~2023-10-21 18:05] MED LIST changes: +CARAFATE S1 GM/10 ML PO; +XIFAXAN550 MG PO
[2023-10-21 18:16] VITALS: TEMP 98.5
[2023-10-21 18:36] LABS: BASO # 0.1 K/mm3 (0.0-0.2); EOS # 0.2 K/mm3 (0.0-0.7); EOS % 2.7 % (0.0-4.0); GRAN # 6.2 K/mm3 (1.4-6.5); GRAN % 77.2 % (42.2-75.2); HEMOGLOBIN 10.7 g/dl (13.5-18.0); LYMPH # 0.9 K/mm3 (1.2-3.4); LYMPH % 11.6 % (20.0-51.0); MEAN CELL VOLUME 106 fl (80.0-100.0); MEAN CORPUSCULAR HEMOGLOBIN 34 pg (27-31); MEAN CORPUSCULAR HGB CONC 33 g/dl (33.0-37.0); MEAN PLATELET VOLUME 11.6 fl (7.4-10.4); MONO # 0.6 K/mm3 (0.1-0.6); MONO % 7.3 % (1.7-9.3); RED BLOOD COUNT 3.11 M/mm3 (4.20-5.60); REDCELL DISTRIBUTION WIDTH-CV 16.5 % (11.5-14.5)
[2023-10-21 18:40] LABS: HEMATOCRIT 32.9 % (42.0-52.0)
[2023-10-21 18:45] LABS: PLATELET COUNT 34 K/mm3 (130-400)
[2023-10-21 18:49] LABS: INR 2.1 (0.8-3.0); PROTHROMBIN TIME 22.5 SECONDS (9.7-12.8)
[2023-10-21 18:51] LABS: PARTIAL THROMBOPLASTIN TIME 40.9 SECONDS (26.0-37.0)
[2023-10-21 18:53] LABS: ALANINE AMINOTRANSFERASE 16 U/L (0-55); ALBUMIN 2.5 g/dL (3.4-4.8); ALKALINE PHOSPHATASE 113 U/L (40-150); ANION GAP 9 mmol/L (7-16); AST,SGOT 36 U/L (5-34); BILIRUBIN,TOTAL 6.3 mg/dL (0.2-1.2); BLOOD UREA NITROGEN 23 mg/dL (8-26); C-REACTIVE PROTEIN 2.45 mg/dL (0.00-0.50); CALCIUM 8.5 mg/dL (8.4-10.2); CHLORIDE 110 mEq/L (98-107); CREATINE KINASE 83 U/L (30-200); CREATININE, serum 1.29 mg/dL (0.72-1.25); GLUCOSE 106 mg/dL (70-99); LIPASE 15 U/L (8-78); POTASSIUM 3.7 mEq/L (3.5-4.5); SODIUM 141 mEq/L (136-145); TOTAL PROTEIN 5.4 g/dl (6.2-8.1)
[2023-10-21 18:57] LABS: ALCOHOL(ethanol),MEDICAL < 10 mg/dL (0-10)
[2023-10-21 19:00] LABS: TROPONIN-I < 0.010 ng/mL (0.00-0.033)
[2023-10-21] MEDS ORDERED: Furosemide 40 MG/4 ML VIAL IV ONE (19:30)
[2023-10-21] MEDS ORDERED: Lactulose Oral Soln 10 GM/15 ML CUP PO ONE (19:30)
[2023-10-21 21:11] LABS: COLLECTION METHOD CATHETER
[2023-10-21 21:23] LABS: PH 5.5 (5.0-8.5); URINE APPEARANCE CLEAR (CLEAR/HAZY); URINE BLOOD NEGATIVE (NEGATIVE); URINE COLOR YELLOW (YELLOW); URINE GLUCOSE NEGATIVE (NEGATIVE); URINE KETONE NEGATIVE (NEGATIVE); URINE NITRATE NEGATIVE (NEGATIVE); URINE PROTEIN(semi-quant) NEGATIVE (NEGATIVE)
[2023-10-21 22:27] VITALS: BP 118/85; PULSE 74
== END 2023-10-21 22:27 | disposition home or self-care (01) ==
LOC: COL.ER 18:05
PROVIDERS: Emergency Medicine
DX: K76.82 Hepatic encephalopathy (principal); K74.60 Unspecified cirrhosis of liver; R09.02 Hypoxemia; R33.9 Retention of urine, unspecified; F17.210 Nicotine dependence, cigarettes, uncomplicated
CPT/HCPCS: A4314; J1940

== ENCOUNTER 2023-11-12 10:59 | Inpatient (IN) | payer MEDICARE, MEDICAID ==
[2023-11-12] VITALS (9 sets, daily range): BP systolic 99–109; BP diastolic 60–63; PULSE 67–75; TEMP 97.7–98.2
[~2023-11-12] VITALS: Ht 180.3 cm; Wt 81.6 kg
[2023-11-12 11:57] LABS: BASO # 0.1 K/mm3 (0.0-0.2); BASO % 0.5 % (0.0-2.0); EOS # 0.1 K/mm3 (0.0-0.7); EOS % 1.1 % (0.0-4.0); GRAN # 6.9 K/mm3 (1.4-6.5); GRAN % 74.2 % (42.2-75.2); LYMPH # 1.3 K/mm3 (1.2-3.4); LYMPH % 14.3 % (20.0-51.0); MEAN CELL VOLUME 108 fl (80.0-100.0); MEAN CORPUSCULAR HGB CONC 32 g/dl (33.0-37.0); MEAN PLATELET VOLUME 12.8 fl (7.4-10.4); MONO # 0.9 K/mm3 (0.1-0.6); MONO % 9.5 % (1.7-9.3); RED BLOOD COUNT 2.41 M/mm3 (4.20-5.60)
[2023-11-12 11:58] LABS: HEMATOCRIT 26.1 % (42.0-52.0); HEMOGLOBIN 8.4 g/dl (13.5-18.0); MEAN CORPUSCULAR HEMOGLOBIN 35 pg (27-31); PLATELET COUNT 37 K/mm3 (130-400)
[2023-11-12 11:59] LABS: INR 2.8 (0.8-3.0)
[2023-11-12 12:17] LABS: ALBUMIN 2.2 g/dL (3.4-4.8); BILIRUBIN,TOTAL 6.4 mg/dL (0.2-1.2); CALCIUM 7.7 mg/dL (8.4-10.2); CREATININE, serum 1.82 mg/dL (0.72-1.25); POTASSIUM 3.3 mEq/L (3.5-4.5); TOTAL PROTEIN 4.5 g/dl (6.2-8.1)
[2023-11-12] MEDS ORDERED: Morphine 4 MG/ML VIAL IV ONE (12:45)
[2023-11-12] MEDS ORDERED: NEURONTIN300 MG/CAP PO (12:59)
[2023-11-12] MEDS ORDERED: Morphine 4 MG/ML VIAL IV PRN (15:00)
[2023-11-12] MEDS ORDERED: oxyCODONE 5 MG TAB PO PRN (15:00)
--- NOTE | 2023-11-12 15:00 | NUR ---
PATIENT ADMITED INTO ROOM 326 FROM ER WITH RIGHT HIP FX. A&O. PATIENT HAS POOR HYGIENE AND MOUTH IS VERY DRY. JAUNDICE COLOR, THIN STATURE, AND NOTED DRY SKIN. 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 PATIENT REPORTS HE HAS BEEN SOBER FOR NEARLY 3 YEARS NOW. DIFFICULT TO OBTAIN LABS AND PLACE RIGHT WRIST IV WITH PLT OF 37. HYLTON TO DD WITH SMALL AMOUNTS OF DARK ALICIA URINE. GENERAL DIET, LIQUIDS AT BEDSIDE. HEAD TO TOE ASSESSMENT COMPLETE. NO FAMILY PRESENT ON ADMIT. ORIENTED TO ROOM. CALL LIGHT IN REACH.
[2023-11-12] MEDS ORDERED: CONSTULOSE 20G/30ML PO (15:13)
[2023-11-12] MEDS ORDERED: Furosemide 40 MG/4 ML VIAL IV ONE (16:15)
[2023-11-12] MEDS ORDERED: Lactulose Oral Soln 10 GM/15 ML CUP PO SCH (16:30)
[2023-11-12 16:42] LABS: COLLECTION METHOD CATHETER
[2023-11-12 16:57] LABS: URINE APPEARANCE CLEAR (CLEAR/HAZY); URINE BLOOD NEGATIVE (NEGATIVE); URINE COLOR Dark Yellow (YELLOW); URINE GLUCOSE NEGATIVE (NEGATIVE); URINE KETONE TRACE (NEGATIVE); URINE NITRATE NEGATIVE (NEGATIVE); URINE PROTEIN(semi-quant) NEGATIVE (NEGATIVE)
[2023-11-12 17:20] LABS: URINE RBC 0-2 /hpf (0-2); URINE WBC 0-2 /hpf (0-2)
[2023-11-12] MEDS ORDERED: Phytonadione 10 MG in NS 50 ML IV ONE (18:20)
[2023-11-12] MEDS ORDERED: NS Flush 25 ML IV Bag IV ONE (18:30)
[2023-11-12] MEDS ORDERED: rifAXIMin 550 MG TAB PO SCH (21:00)
[2023-11-12] MEDS ORDERED: Mirtazapine 15 MG TAB PO SCH (21:00)
[2023-11-12] MEDS ORDERED: Gabapentin 300 MG CAP PO SCH (21:00)
[2023-11-12] MEDS ORDERED: busPIRone 7.5 MG TABLET PO SCH (21:00)
[2023-11-12] MEDS ORDERED: traZODone 50 MG TAB PO PRN (21:00)
--- NOTE | 2023-11-12 22:29 | NUR ---
PHONE CONSENT FOR TRANSFUSION OF BLOOD/BLOOD PRODUCTS REC'D FROM PT'S BETO @[phone], WITH SECOND RN WITNESS JERRI KING
[2023-11-13] VITALS (23 sets, daily range): BP systolic 90–113; BP diastolic 37–66; PULSE 74–87; TEMP 97.4–98.8
[2023-11-13 06:59] LABS: INR 2.4 (0.8-3.0); PROTHROMBIN TIME 25.1 SECONDS (9.7-12.8)
--- NOTE | 2023-11-13 06:59 | NUR ---
pt rec'd 3 units of platelets this shift, no s/sx of reaction, VSS. pain controlled with IV and po meds, NPO after midnight. turned q2h, SCDs on. vasquez draining nancy yellow urine. requiring 2L O2 per nc.
[2023-11-13 07:10] LABS: BILIRUBIN,TOTAL 4.8 mg/dL (0.2-1.2); CALCIUM 7.3 mg/dL (8.4-10.2); CREATININE, serum 2.09 mg/dL (0.72-1.25); MAGNESIUM 1.7 mg/dL (1.6-2.6); POTASSIUM 3.2 mEq/L (3.5-4.5); TOTAL PROTEIN 3.9 g/dl (6.2-8.1)
[2023-11-13 07:15] LABS: BASO # 0.1 K/mm3 (0.0-0.2); BASO % 0.6 % (0.0-2.0); EOS # 0.2 K/mm3 (0.0-0.7); EOS % 2.7 % (0.0-4.0); GRAN # 5.3 K/mm3 (1.4-6.5); GRAN % 68.4 % (42.2-75.2); LYMPH # 1.2 K/mm3 (1.2-3.4); LYMPH % 15.2 % (20.0-51.0); MEAN CELL VOLUME 108 fl (80.0-100.0); MEAN CORPUSCULAR HGB CONC 32 g/dl (33.0-37.0); MEAN PLATELET VOLUME 11.6 fl (7.4-10.4); MONO % 12.7 % (1.7-9.3); PLATELET COUNT 51 K/mm3 (130-400); RED BLOOD COUNT 1.73 M/mm3 (4.20-5.60)
[2023-11-13 07:20] LABS: HEMATOCRIT 18.6 % (42.0-52.0); MEAN CORPUSCULAR HEMOGLOBIN 35 pg (27-31)
--- NOTE | 2023-11-13 07:25 | NUR ---
CALLED HOSPITALIST WITH CRITICAL HGB OF 6.0 AND PLT OF 55, ALSO NOTIFIED [facility], SEE ORDERS FOR BLOOD TRANSFUSIONS.
[2023-11-13] MEDS ORDERED: Phytonadione 10 MG in NS 50 ML IV ONE (08:15)
--- NOTE | 2023-11-13 08:30 | NUR ---
[facility] AT BEDSIDE.
--- NOTE | 2023-11-13 08:55 | NUR ---
HOSPITALIST & CARDIOLOGY AT BEDSIDE.
[2023-11-13] MEDS ORDERED: Gabapentin 300 MG CAP PO SCH (09:00)
[2023-11-13] MEDS ORDERED: Lactulose Oral Soln 10 GM/15 ML CUP PO SCH (09:00)
--- NOTE | 2023-11-13 09:10 | NUR ---
STARTED FIRST UNIT OF BLOOD PER ORDERS. VSS. AT BEDSIDE. TOLERATING TRANSFUSION WELL SO FAR.
--- NOTE | 2023-11-13 09:35 | NUR ---
RADIOLOGY AT BEDSIDE TO OBTAIN CXR AND TECH WILL CLOUD IMAGES TO [facility]
--- NOTE | 2023-11-13 11:57 | NUR ---
STARTED SECOND BLOOD TRANSFUSION PER ORDERS. VSS. PATIENT TOLERATING WELL SO FAR. FAMILY AT BEDSIDE. PATIENT SLEEPING
[2023-11-13] MEDS ORDERED: ROXICODONE 55 MG/TAB PO (13:01)
--- NOTE | 2023-11-13 14:25 | NUR ---
[facility] ACCEPTED PATIENT AND REQUESTED PATIENT REMAIN NPO FOR TRANSFER. AWAITING ICU/IMCU ROOM AND NUMBER FOR REPORT. DIRECT SERVICE PROVIDER WORKING ON EMS TRANSPORT. AT BEDSIDE.
--- NOTE | 2023-11-13 16:15 | NUR ---
EMS HERE FOR TRANSFER TO . TRANSFER PACKET GIVEN TO EMS. TOOK PERSONAL BELONGINGS. CALLED REPORT TO NURSE AT AND ANSWERED QUESTIONS/CONCERNS. PATIENT DISCHARGED TO A HIGHER LEVEL OF CARE.
== END 2023-11-13 16:20 | disposition short-term general hospital (02) | DRG 543 ==
LOC: COL.ER 10:59 → SURG 13:33 → COL.ER 13:33 → SURG 15:05
PROVIDERS: Family Medicine; Nurse Practitioner Family; ADMIT Internal Medicine
PROC: 6A551Z2 Pheresis of Platelets, Multiple (ICD-10-PCS; principal; 2023-11-12)
PROC: 30233N1 Transfusion of Nonautologous Red Blood Cells into Peripheral Vein, Percutaneous Approach (ICD-10-PCS; 2023-11-13)
DX: M80.851A Other osteoporosis with current pathological fracture, right femur, initial encounter for fracture (principal); N17.9 Acute kidney failure, unspecified; K70.31 Alcoholic cirrhosis of liver with ascites; W01.0XXA Fall on same level from slipping, tripping and stumbling without subsequent striking against object, initial encounter; I25.10 Atherosclerotic heart disease of native coronary artery without angina pectoris; F10.10 Alcohol abuse, uncomplicated; J44.9 Chronic obstructive pulmonary disease, unspecified; K72.10 Chronic hepatic failure without coma; I73.9 Peripheral vascular disease, unspecified; E87.6 Hypokalemia; D64.9 Anemia, unspecified; I07.1 Rheumatic tricuspid insufficiency; D69.6 Thrombocytopenia, unspecified; F17.210 Nicotine dependence, cigarettes, uncomplicated; Z89.412 Acquired absence of left great toe; Z89.431 Acquired absence of right foot; Z95.5 Presence of coronary angioplasty implant and graft; Z86.74 Personal history of sudden cardiac arrest; Z88.8 Allergy status to other drugs, medicaments and biological substances; Z79.899 Other long term (current) drug therapy; Y93.89 Activity, other specified; Y92.89 Other specified places as the place of occurrence of the external cause; Z79.82 Long term (current) use of aspirin; Z23 Encounter for immunization
CPT/HCPCS: A4314; A9284; J1940; J2270; J3430; P9016; P9035